=== PATIENT | female | born 1940 | race Caucasian/White ===

== ENCOUNTER 2016-09-06 10:55 | Day surgery (SDC) | payer MEDICARE ==
[2016-09-06] MEDS ORDERED: DIPHENHYDRAMINE HCL 50 MG/ML VIAL ONE (11:10)
[2016-09-06] MEDS ORDERED: NALOXONE HCL INJ/PF 0.4 MG/1 ML SDV ONE (11:11)
[2016-09-06] MEDS ORDERED: FENTANYL CITRATE INJ/PF 100 MCG/2 ML AMPUL ONE (11:11)
[2016-09-06] MEDS ORDERED: FLUMAZENIL INJ 0.5 MG/5 ML VIAL IV ONE (11:11)
[2016-09-06] MEDS ORDERED: ONDANSETRON HCL INJ/PF 4 MG/2 ML SDV ONE (11:11)
[2016-09-06] MEDS ORDERED: EPINEPHRINE INJ 1 MG/10 ML DISP.SYRIN ONE (11:12)
[2016-09-06] MEDS ORDERED: GLUCAGON,HUMAN RECOMB 1 MG INJ ONE (11:12)
[2016-09-06] MEDS: MIDAZOLAM 2 MG/2 ML INJ ONE ×2 (12:13→12:17)
--- NOTE | 2016-09-06 13:22 | Operative Report ---
Operative Report DATE OF SURGERY: 09/06/16 Operative Report: The risks benefits and alternatives of the procedure explained to the patient in detail and informed consent is obtained that GIF Olympus video scope was inserted into the patient's mouth and hypopharynx the esophagus is identified intubated and insufflated the scope was then advanced through the esophagus stomach and duodenum retroflexion maneuver is done the esophagus stomach and first and second portions of the duodenum examined PREOPERATIVE DIAGNOSIS: GERD, dyspepsia POSTOPERATIVE DIAGNOSIS: Thickened gastric folds status post biopsy rule out malignancy. Gastritis status post biopsy rule out Helicobacter pylori. Hiatal hernia OPERATION: EGD with biopsy SURGEON: SREE CLEANING ANESTHESIA: Moderate Sedation - 4 mg of Versed, 25 g of fentanyl. Conscious sedation monitoring time 30 minutes. TISSUE REMOVED OR ALTERED: Gastric mucosal specimen obtained rule out Helicobacter pylori COMPLICATIONS: None. ESTIMATED BLOOD LOSS: none. INTRAOPERATIVE FINDINGS: Described above. No ulcers noted. Duodenum normal. Esophagus is patent PROCEDURE: Patient tolerated the procedure well. No immediate postprocedure complications are noted. Patient discharged in good condition. Discharge date 09/06/2016. Discharge diet: Regular. Discharge activity: Regular. 2-3 week follow-up to discuss findings We'll await on biopsies Patient is instructed to call the office or proceed to the emergency room should there be any further problems or questions
[2016-09-06 13:41] VITALS: BP 135/90
== END 2016-09-06 13:40 | disposition home or self-care (01) ==
LOC: END 10:55
PROVIDERS: ATTEND Internal Medicine Gastroenterology
PROC: 0DB68ZX Excision of Stomach, Via Natural or Artificial Opening Endoscopic, Diagnostic (ICD-10-PCS; principal; 2016-09-06 11:30)
DX: K21.9 Gastro-esophageal reflux disease without esophagitis (principal); K31.9 Disease of stomach and duodenum, unspecified; K44.9 Diaphragmatic hernia without obstruction or gangrene; E78.2 Mixed hyperlipidemia; I10 Essential (primary) hypertension; E11.9 Type 2 diabetes mellitus without complications; H91.93 Unspecified hearing loss, bilateral; M81.0 Age-related osteoporosis without current pathological fracture; R25.1 Tremor, unspecified
CPT/HCPCS: 43239; 82962; 88342 ×2; 88305 ×2; J2250; J3010; J0171; J1200; J1610; J2310; J2405; J3490

== ENCOUNTER 2016-11-05 07:12 | Day surgery (SDC) | payer MEDICARE ==
[2016-11-05] MEDS ORDERED: PROPOFOL INJ 200 MG/20 ML VIAL IV ONE (07:15)
[2016-11-05 09:20] VITALS: BP 141/79
--- NOTE | 2016-11-05 12:33 | Operative Report ---
Operative Report DATE OF SURGERY: 11/05/16 Operative Report: The risks, benefits and alternatives of the procedure including risks of bleeding, perforation requiring surgery are explained to the patient detail and informed consent was obtained. Patient was taken back to the endoscopy suite. Timeout was called. Propofol medications administered. A rectal examination was done which did not reveal any masses, tears or fissures. An Olympus video scope was inserted into the patient's rectum. The scope was then carefully guided all the way to the cecum. The cecum was identified by the usual anatomical landmarks including the ileocecal valve as well as the appendiceal office. Photodocumentation was obtained. The prep was good. The scope was then sequentially pulled back via the rest segments of the colon including the ascending colon, hepatic flexure, transverse colon, splenic flexure, descending colon and finally to the rectosigmoid portions of the colon. Retroflexion maneuver was performed. PREOPERATIVE DIAGNOSIS: Change in bowel habits. POSTOPERATIVE DIAGNOSIS: 2 colon polyps that removed via snare polypectomy and retrieved. One in the area of the hepatic flexure and the other in the transverse colon. Internal hemorrhoids. OPERATION: Colonoscopy with snare polypectomy. SURGEON: SREE CLEANING ANESTHESIA: LMAC TISSUE REMOVED OR ALTERED: All specimens were retrieved. COMPLICATIONS: None. ESTIMATED BLOOD LOSS: None. INTRAOPERATIVE FINDINGS: No evidence of inflammation. 2 polyps as described. Internal hemorrhoids. PROCEDURE: Patient tolerated the procedure well. No immediate postprocedure complications are noted. Patient discharged in good condition. Discharge date 11/05/2016. Discharge diet: Regular. Discharge activity: Regular. 2-3 week follow-up to discuss findings. 5 year surveillance colonoscopy. Patient is instructed to call the office or proceed to the emergency room should there be any further problems or questions. We will wait on biopsies.
--- NOTE | 2016-11-07 10:04 | PDOC CONSULTATION ---
Consultation Consult Date: 11/05/16 Attending physician:: SREE CLEANING Consult reason:: change in bowel habits History of Present Illness Admission Date/PCP: MILLY DOYLE MD History of Present Illness: XANDER TORRES is a 76 year old female patient previously had EGD done now having a change in her bowel habits denies any significant blood in her stools however recently has been more constipated no abdominal pain no fever or chills Past Medical History Cardiac Medical History: Reports: Hypertension Denies: Coronary Artery Disease, Myocardial Infarction Pulmonary Medical History: Denies: Asthma, Bronchitis, Chronic Obstructive Pulmonary Disease (COPD), Pneumonia Neurological Medical History: Denies: Seizures Musculoskeltal Medical History: Reports: Arthritis Hematology: Denies: Anemia Past Surgical History Past Surgical History: Denies: Hysterectomy Social History Smoking Status: Former Smoker Frequency of Alcohol Use: Rare Family History Parental Family History Reviewed: Yes Children Family History Reviewed: Unknown Sibling(s) Family History Reviewed.: Unknown Medication/Allergy Home Medications: Amlodipine Besylate 1 tab PO DAILY 09/06/16 Calcium 2 tab PO DAILY 09/06/16 Metformin HCl 500 mg PO ASDIR PRN 09/06/16 Nexium Otc 1 tab PO DAILY 09/06/16 Ranitidine HCl 150 mg PO DAILY 09/06/16 Triamterene/Hydrochlorothiazid [Triamterene-Hctz 37.5-25 mg Tb] 0.5 tab PO DAILY 09/06/16 Vit A/Vit C/Vit E/Zinc/Copper [Preservision Areds Tablet] 1 each PO BID Vit C/E/Zn/Coppr/Lutein/Zeaxan [Preservision Areds 2 Softgel] 1 each PO DAILY Allergies/Adverse Reactions: codeine Allergy (Mild, Verified 11/05/16 07:32) Rash, stomach ache Jnyztqg-Zzt-Shi Reductase Inhibitor Allergy (Mild, Verified 11/05/16 07:32) Generalized rash dust Allergy (Mild, Uncoded 11/05/16 07:32) Stuffy Nose Review of Systems Constitutional: ABSENT: fever(s), headache(s), night sweats, weakness Eyes: ABSENT: visual disturbances Ears: ABSENT: hearing changes Nose, Mouth, and Throat: ABSENT: mouth pain Cardiovascular: ABSENT: edema, orthropnea, palpitations Respiratory: ABSENT: dyspnea, hemoptysis Gastrointestinal: PRESENT: constipation. ABSENT: coffee ground emesis Genitourinary: ABSENT: dysuria, hematuria Musculoskeletal: ABSENT: deformity Integumentary: ABSENT: lesions Neurological: ABSENT: syncope, tingling, tremor(s) Endocrine: ABSENT: heat intolerance, polydipsia, polyphagia, polyuria Hematologic/Lymphatic: ABSENT: easy bruising Physical Exam Vital Signs: Temp Pulse Resp BP Pulse Ox 97.5 F 83 16 141/79 H 100 11/05/16 08:36 11/05/16 09:06 11/05/16 09:06 11/05/16 09:06 11/05/16 09:06 Intake & Output 11/06/16 11/07/16 11/08/16 06:59 06:59 06:59 Intake Total 1350 Balance 1350 Weight 53.52 kg General appearance: PRESENT: no acute distress. ABSENT: mild distress Head exam: PRESENT: normocephalic Eye exam: PRESENT: EOMI, PERRLA Mouth exam: PRESENT: moist Throat exam: ABSENT: tonsillar exudate, tonsillogmegaly Neck exam: ABSENT: meningismus, tenderness Respiratory exam: PRESENT: clear to auscultation jojo Cardiovascular exam: PRESENT: RRR, +S1, +S2 GI/Abdominal exam: PRESENT: soft. ABSENT: rebound, rigid, tenderness Extremities exam: ABSENT: joint swelling Musculoskeletal exam: PRESENT: full ROM Neurological exam: PRESENT: oriented to time, oriented to situation, reflexes normal Skin exam: PRESENT: normal color. ABSENT: mottled, pallor, petechiae Assessment & Plan - Diagnosis (1) Change in bowel habits Plan: Risks, benefits and alternatives are discussed with the patient in detail patient is willing to proceed she would benefit from Propofol sedation further recommendations to follow - Time Time Spent: 30 to 50 Minutes
== END 2016-11-05 09:20 | disposition home or self-care (01) ==
LOC: END 07:12
PROVIDERS: ATTEND Internal Medicine Gastroenterology
PROC: 0DBK8ZX Excision of Ascending Colon, Via Natural or Artificial Opening Endoscopic, Diagnostic (ICD-10-PCS; 2016-11-05)
PROC: 0DBL8ZX Excision of Transverse Colon, Via Natural or Artificial Opening Endoscopic, Diagnostic (ICD-10-PCS; principal; 2016-11-05 08:00)
DX: D12.3 Benign neoplasm of transverse colon (principal); K64.8 Other hemorrhoids; I10 Essential (primary) hypertension; M19.90 Unspecified osteoarthritis, unspecified site; E78.2 Mixed hyperlipidemia; E11.9 Type 2 diabetes mellitus without complications; Z87.891 Personal history of nicotine dependence; Z79.899 Other long term (current) drug therapy; Z79.84 Long term (current) use of oral hypoglycemic drugs; Z88.5 Allergy status to narcotic agent; Z88.8 Allergy status to other drugs, medicaments and biological substances
CPT/HCPCS: 45385; 82962; 88305 ×2; J2704; 810

== ENCOUNTER 2017-09-18 09:34 | Day surgery (SDC) | payer MEDICARE ==
[~2017-09-18 09:34] MED LIST: KETOROLAC TROMETHAMINE 0.45% 4 DROP/0.4 ML DROPERETTE OD PRN
[2017-09-18] MEDS ORDERED: EPINEPHRINE INJ/PF 1 MG/1 ML AMPULE ONE (09:53)
[2017-09-18] MEDS ORDERED: CHONDR SU A NA/HYALUR INTRAOC KIT (SURGICARE) ONE (09:53)
[2017-09-18] MEDS ORDERED: TOBRAMYCIN SULFATE/DEXAMETH OPH OINTMENT 3.5 GM ONE (09:53)
[2017-09-18] MEDS ORDERED: LIDOCAINE 1% INJ-PF (10 MG/ML) 30 ML SDV ONE (09:53)
[2017-09-18] MEDS: CYCLOPENTOLATE 0.2%/PHENYLEPHRINE 1% OPH SOLN 2 ML OD PRN ×3 (10:04→10:42)
[2017-09-18] MEDS: TROPICAMIDE 1% OPH SOLN 3 ML OD PRN ×3 (10:04→10:42)
[2017-09-18] MEDS: BESIFLOXACIN HCL 0.6% OPH SUSP 5 ML BOTTLE OD PRN ×3 (10:05→11:12)
[2017-09-18] MEDS: TETRACAINE HCL 0.5% OPH SOLN 0.6 ML DROPERETTE OD PRN ×3 (10:06→10:54)
[2017-09-18] MEDS ORDERED: FENTANYL CITRATE INJ/PF 100 MCG/2 ML AMPUL ONE (10:42)
[2017-09-18] MEDS ORDERED: MIDAZOLAM 2 MG/2 ML INJ ONE (10:42)
== END 2017-09-18 11:57 | disposition home or self-care (01) ==
LOC: SC 09:34
PROVIDERS: ATTEND Ophthalmology
DX: H25.11 Age-related nuclear cataract, right eye (principal); I10 Essential (primary) hypertension; K21.9 Gastro-esophageal reflux disease without esophagitis; Z88.5 Allergy status to narcotic agent; Z88.8 Allergy status to other drugs, medicaments and biological substances; Z79.84 Long term (current) use of oral hypoglycemic drugs; Z79.899 Other long term (current) drug therapy
CPT/HCPCS: 66984; V2630; J2250; J3490 ×3; A9270; J0171; J3010; 142

== ENCOUNTER → 2019-12-24 | Outpatient (CLI) | payer MEDICARE ==
[2019-12-24 17:39] LABS: APPEARANCE,URINE CLEAR; BILIRUBIN,URINE NEGATIVE (NEGATIVE); COLOR,URINE STRAW; GLUCOSE, URINE NEGATIVE (NEGATIVE); KETONES,URINE NEGATIVE (NEGATIVE); LEUKOCYTE ESTERASE,URINE TRACE (NEGATIVE); NITRITE,URINE NEGATIVE (NEGATIVE); PROTEIN,URINE NEGATIVE (NEGATIVE); UROBILINOGEN,URINE NEGATIVE mg/dL (<2.0)
[2019-12-24 17:40] LABS: ABSOLUTE EOSINOPHILS # (AUTO) 0.3 10^3/uL (0.0-0.6); ABSOLUTE LYMPHOCYTES (AUTO) 0.8 10^3/uL (0.5-4.7); ABSOLUTE MONOCYTES (AUTO) 0.6 10^3/uL (0.1-1.4); ABSOLUTE NEUT (AUTO) 4.7 10^3/uL (1.7-8.2); BASOPHILS % (AUTO) 0.7 % (0-2); EOSINOPHILS % (AUTO) 5.1 % (0-6); HEMATOCRIT 35.7 % (36.0-47.0); LYMPHOCYTES % (AUTO) 12.3 % (13-45); MEAN CORPUSCULAR HEMOGLOBIN 29.3 pg (27.0-33.4); MEAN CORPUSCULAR HGB CONC 33.7 g/dL (32.0-36.0); MEAN CORPUSCULAR VOLUME 87 fl (80-97); MONOCYTES % (AUTO) 9.9 % (3-13); PLATELET COUNT 279 10^3/uL (150-450); RED BLOOD COUNT 4.11 10^6/uL (3.72-5.28); RED CELL DISTRIBUTION WIDTH 13.1 % (11.5-14.0); TOTAL CELLS COUNTED % (AUTO) 100 %; WHITE BLOOD COUNT 6.5 10^3/uL (4.0-10.5)
[2019-12-24 17:54] LABS: ALBUMIN 4.3 g/dL (3.5-5.0); ANION GAP 10 (5-19); BLOOD UREA NITROGEN 75 mg/dL (7-20); CALCIUM 9.4 mg/dL (8.4-10.2); CARBON DIOXIDE 30 mmol/L (22-30); CHLORIDE 94 mmol/L (98-107); GLUCOSE 131 mg/dL (75-110); PHOSPHORUS 5.9 mg/dL (2.5-4.5); POTASSIUM 4.7 mmol/L (3.6-5.0)
== END ==
LOC: OD 15:58
PROVIDERS: ATTEND Physician Assistant Medical
DX: N17.9 Acute kidney failure, unspecified (principal)
CPT/HCPCS: 36415; 80069; 81001; 85025

== ENCOUNTER → 2020-01-04 | Outpatient (CLI) | payer MEDICARE ==
[2020-01-04 11:12] LABS: ABSOLUTE EOSINOPHILS # (AUTO) 0.3 10^3/uL (0.0-0.6); ABSOLUTE LYMPHOCYTES (AUTO) 0.8 10^3/uL (0.5-4.7); ABSOLUTE MONOCYTES (AUTO) 0.6 10^3/uL (0.1-1.4); ABSOLUTE NEUT (AUTO) 3.7 10^3/uL (1.7-8.2); BASOPHILS % (AUTO) 0.7 % (0-2); EOSINOPHILS % (AUTO) 6.4 % (0-6); HEMATOCRIT 34.8 % (36.0-47.0); HEMOGLOBIN 11.8 g/dL (12.0-15.5); LYMPHOCYTES % (AUTO) 15.3 % (13-45); MEAN CORPUSCULAR HEMOGLOBIN 29.6 pg (27.0-33.4); MEAN CORPUSCULAR HGB CONC 33.8 g/dL (32.0-36.0); MEAN CORPUSCULAR VOLUME 88 fl (80-97); MONOCYTES % (AUTO) 10.6 % (3-13); PLATELET COUNT 236 10^3/uL (150-450); RED BLOOD COUNT 3.98 10^6/uL (3.72-5.28); RED CELL DISTRIBUTION WIDTH 13.1 % (11.5-14.0); TOTAL CELLS COUNTED % (AUTO) 100 %; WHITE BLOOD COUNT 5.5 10^3/uL (4.0-10.5)
[2020-01-04 11:35] LABS: ALBUMIN 4.3 g/dL (3.5-5.0); ANION GAP 12 (5-19); BLOOD UREA NITROGEN 65 mg/dL (7-20); CALCIUM 9.4 mg/dL (8.4-10.2); CARBON DIOXIDE 25 mmol/L (22-30); CHLORIDE 98 mmol/L (98-107); GLUCOSE 166 mg/dL (75-110); PHOSPHORUS 4.8 mg/dL (2.5-4.5); POTASSIUM 5.1 mmol/L (3.6-5.0)
[2020-01-04 14:35] LABS: APPEARANCE,URINE CLEAR; BILIRUBIN,URINE NEGATIVE (NEGATIVE); COLOR,URINE STRAW; GLUCOSE, URINE NEGATIVE (NEGATIVE); KETONES,URINE NEGATIVE (NEGATIVE); LEUKOCYTE ESTERASE,URINE SMALL (NEGATIVE); NITRITE,URINE NEGATIVE (NEGATIVE); PROTEIN,URINE NEGATIVE (NEGATIVE); URINE SPECIFIC GRAVITY 1.009; UROBILINOGEN,URINE NEGATIVE mg/dL (<2.0)
== END ==
LOC: OD 10:06
PROVIDERS: ATTEND Physician Assistant Medical
DX: N17.9 Acute kidney failure, unspecified (principal)
CPT/HCPCS: 36415; 80069; 81001; 85025

== ENCOUNTER 2020-03-03 03:16 | Inpatient (IN) | payer MEDICARE ==
--- NOTE | 2020-03-03 03:31 | ER Document Report ---
ED Respiratory Problem - General Chief Complaint: Breathing Difficulty Stated Complaint: DIFFICULTY BREATHING Time Seen by Provider: 03/03/20 03:25 Primary Care Provider: KELLY SHEFFIELD PA-C [ALLIED HEALTH PROFESSIONAL] - Follow up as needed Mode of Arrival: Medic Information source: Patient, Relative, Emergency Med Personnel Cannot obtain history due to: Other - very [place] Notes: 79-year-old female arrived by EMS with chief complaint of having acute chest pressure and shortness of breath. This occurred while she was laying down trying to get to sleep tonight. Patient has history of CHF and is followed by Dr. Benoit. Patient within the last 2 months had her Imdur and metoprolol increased but then 2 weeks ago this was decreased back because of no changes in the patient's blood pressure. Patient has been sleeping poorly for the last 2 or 3 days only getting around 2 hours sleep. She denies any headache but fell 2 weeks ago in the bathroom slipping on some carpet. She has bruises to her left cheek and left submental area. Patient denies any tenderness in these areas and denies any LOC. Most of this history is taken from Triny her daughter and her Jose who has some mild dementia. 's phone numbers [phone] and daughter Triny's number is [phone]. The patient was placed in room 8 around a edwards section and I advised the family to try to get some sleep because seeing her in this area would be very difficult because of the suit up PPE for coronavirus. It is currently pandemic in this country and the world. We do not suspect any coronavirus in this woman at this time. Patient has mild nonpitting edema of her legs. TRAVEL OUTSIDE OF THE [place] IN LAST 30 DAYS: No - HPI Patient complains to provider of: Chest pain, COPD, Short of breath Onset: Just prior to arrival Initiating Event: Other - unknown Quality of pain: Achy Severity: Mild Pain Level: 1 Short of Breath: Moderate Chest pain/discomfort: Heaviness Cough: Nonproductive - Related Data Allergies/Adverse Reactions: codeine Allergy (Mild, Verified 11/05/16 07:32) Rash, stomach ache Eybvckg-Nsv-Qtd Reductase Inhibitor Allergy (Mild, Verified 11/05/16 07:32) Generalized rash wool Allergy (Verified 08/29/17 14:45) rash dust Allergy (Mild, Uncoded 11/05/16 07:32) Stuffy Nose Past Medical History - General Information source: Patient - Social History Smoking Status: Unknown if Ever Smoked Cigarette use (# per day): No Chew tobacco use (# tins/day): No Smoking Education Provided: No Frequency of alcohol use: None Drug Abuse: None Lives with: Family Family History: Reviewed & Not Pertinent Patient has suicidal ideation: No Patient has homicidal ideation: No - Past Medical History Cardiac Medical History: Reports: Hx Hypertension - MEDICATED Denies: Hx Coronary Artery Disease, Hx Heart Attack Pulmonary Medical History: Denies: Hx Asthma, Hx Bronchitis, Hx COPD, Hx Pneumonia Neurological Medical History: Denies: Hx Cerebrovascular Accident, Hx Seizures GI Medical History: Denies: Hx Hepatitis, Hx Hiatal Hernia, Hx Ulcer Musculoskeletal Medical History: Reports Hx Arthritis Infectious Medical History: Denies: Hx Hepatitis Past Surgical History: Denies: Hx Hysterectomy, Hx Mastectomy, Hx Open Heart Surgery, Hx Pacemaker - Immunizations Hx Diphtheria, Pertussis, Tetanus Vaccination: Yes Review of Systems - Review of Systems Constitutional: See HPI, Weakness EENT: No symptoms reported Cardiovascular: See HPI, Chest pain Respiratory: See HPI, Short of breath Gastrointestinal: No symptoms reported Genitourinary: No symptoms reported Female Genitourinary: No symptoms reported Musculoskeletal: No symptoms reported Skin: No symptoms reported Hematologic/Lymphatic: No symptoms reported Neurological/Psychological: No symptoms reported Physical Exam - Vital signs Vitals: Temp 98.1 F 03/03/20 03:16 Interpretation: Normal - General General appearance: Appears well, Alert - HEENT Head: Normocephalic, Abrasions, Ecchymosis, Other - To left cheek and left submental area status post fall in bathroom. Eyes: Normal Pupils: PERRL - Respiratory Respiratory status: No respiratory distress Chest status: Nontender Breath sounds: Normal Chest palpation: Normal - Cardiovascular Rhythm: Regular Heart sounds: Normal auscultation Murmur: No - Abdominal Inspection: Normal Distension: No distension Bowel sounds: Normal Tenderness: Nontender Organomegaly: No organomegaly - Rectal Hemorrhoids: Other - deferred - Genitourinary Bimanuel exam: Other - deferred - Back Back: Normal, Nontender - Extremities General upper extremity: Normal inspection, Nontender, Normal color, Normal ROM, Normal temperature General lower extremity: Normal inspection, Nontender, Edema - non pitting, Normal color, Normal ROM, Normal temperature, Normal weight bearing. No: Julio's sign - Neurological Neuro grossly intact: Yes Cognition: Normal Orientation: AAOx4 Delmy Coma Scale Eye Opening: Spontaneous [place] Coma Scale Verbal: Oriented [place] Coma Scale Motor: Obeys Commands Delmy Coma Scale Total: 15 Speech: Normal Motor strength normal: LUE, RUE, LLE, RLE Sensory: Normal - Psychological Associated symptoms: Normal affect, Normal mood - Skin Skin Temperature: Warm Skin Moisture: Dry Skin Color: Normal Course - Vital Signs Vital signs: Temp Pulse Resp BP Pulse Ox 98.1 F 23 H 149/90 H 99 03/03/20 03:16 03/03/20 04:55 03/03/20 04:46 03/03/20 04:55 - Laboratory Result Diagrams: 03/03/20 03:21 03/03/20 03:21 Laboratory results interpreted by me: 03/03/20 03/03/20 03/03/20 03:21 03:21 03:21 WBC 11.0 H Lymph % (Auto) 10.6 L Absolute Neuts (auto) 8.9 H Seg Neutrophils % 81.0 H Potassium 5.1 H Carbon Dioxide 20 L BUN 45 H Creatinine 2.38 H Est GFR ( Amer) 24 L Est GFR (MDRD) Non-Af 20 L Glucose 190 H Lactic Acid 2.2 H Calcium 10.4 H AST 43 H Alkaline Phosphatase 136 H NT-Pro-B Natriuret Pep 03/03/20 03:21 WBC Lymph % (Auto) Absolute Neuts (auto) Seg Neutrophils % Potassium Carbon Dioxide BUN Creatinine Est GFR ( Amer) Est GFR (MDRD) Non-Af Glucose Lactic Acid Calcium AST Alkaline Phosphatase NT-Pro-B Natriuret Pep 29056 H - Diagnostic Test Radiology reviewed: Reports reviewed - EKG Interpretation by Me EKG shows normal: Sinus rhythm Rate: Normal Rhythm: NSR - With sinus rhythm probable left atrial abnormality borderline left axis deviation and borderline R wave progression anterior leads and nonspecific T wave abnormalities bilateral leads as read by computer and diagnosed by myself. Critical Care Note - Critical Care Note Comments: Dr. Radha Ramirez called at [phone] and she advises she will accept the patient and see the patient and wants a cardiology consult. Dr. Bravo was called shortly thereafter. Discharge - Discharge Clinical Impression: Hypertensive cardiovascular disease Qualifiers: Heart failure presence: unspecified whether heart failure present Qualified Code(s): I11.9 - Hypertensive heart disease without heart failure CHF (congestive heart failure) Qualifiers: Heart failure type: unspecified Heart failure chronicity: acute Qualified Code(s): I50.9 - Heart failure, unspecified Right lower lobe pneumonitis Qualifiers: Pneumonia type: due to unspecified organism Qualified Code(s): J18.9 - Pneumonia, unspecified organism Condition: Stable Disposition: ADMITTED INPATIENT Admitting Provider: Ashley (Hospitalist) Unit Admitted: Telemetry Referrals: KELLY SHEFFIELD PA-C [ALLIED HEALTH PROFESSIONAL] - Follow up as needed
[2020-03-03 03:43] LABS: ABSOLUTE BASOPHILS # (AUTO) 0.1 10^3/uL (0.0-0.2); ABSOLUTE EOSINOPHILS # (AUTO) 0.3 10^3/uL (0.0-0.6); ABSOLUTE LYMPHOCYTES (AUTO) 1.2 10^3/uL (0.5-4.7); ABSOLUTE MONOCYTES (AUTO) 0.5 10^3/uL (0.1-1.4); ABSOLUTE NEUT (AUTO) 8.9 10^3/uL (1.7-8.2); BASOPHILS % (AUTO) 0.5 % (0-2); HEMATOCRIT 38.4 % (36.0-47.0); LYMPHOCYTES % (AUTO) 10.6 % (13-45); MEAN CORPUSCULAR HEMOGLOBIN 29.9 pg (27.0-33.4); MEAN CORPUSCULAR HGB CONC 33.9 g/dL (32.0-36.0); MEAN CORPUSCULAR VOLUME 88 fl (80-97); MONOCYTES % (AUTO) 4.9 % (3-13); PLATELET COUNT 264 10^3/uL (150-450); RED BLOOD COUNT 4.35 10^6/uL (3.72-5.28); TOTAL CELLS COUNTED % (AUTO) 100 %
[2020-03-03 03:54] LABS: ALBUMIN 4.3 g/dL (3.5-5.0); ALKALINE PHOSPHATASE 136 U/L (38-126); ANION GAP 14 (5-19); ASPARTATE AMINO TRANSFERASE 43 U/L (14-36); BILIRUBIN,DIRECT 0.2 mg/dL (0.0-0.4); BILIRUBIN,TOTAL 0.5 mg/dL (0.2-1.3); BLOOD UREA NITROGEN 45 mg/dL (7-20); CALCIUM 10.4 mg/dL (8.4-10.2); CARBON DIOXIDE 20 mmol/L (22-30); CHLORIDE 105 mmol/L (98-107); CREATINE KINASE 103 U/L (30-135); GLUCOSE 190 mg/dL (75-110); POTASSIUM 5.1 mmol/L (3.6-5.0); TOTAL PROTEIN 7.2 g/dL (6.3-8.2)
[2020-03-03 04:07] LABS: INTERNATIONAL RATION (INR) 1.06; PARTIAL THROMBOPLASTIN TIME 28.6 SEC (23.5-35.8)
[2020-03-03 04:11] LABS: TROPONIN I 0.074 ng/mL
[2020-03-03] MEDS ORDERED: DEXAMETHASONE SOD PHOS INJ 10 MG/1 ML VIAL IV ONE (04:28)
[2020-03-03] MEDS ORDERED: AZITHROMYCIN INJ 500 MG VIAL IV ONE (04:28)
[2020-03-03] MEDS ORDERED: BUMETANIDE INJ/PF 1 MG/4 ML SDV IV ONE (04:29)
--- NOTE | 2020-03-03 05:00 | RADIOLOGY REPORT (SQ) ---
EXAM: XR Chest, 1 View EXAM DATE/TIME: 03/03/2020 04:29 CLINICAL HISTORY: The patient is 79 years old and is Female; dyspnea TECHNIQUE: Frontal view of the chest. COMPARISON: Chest radiograph from 11/25/2019 FINDINGS: LUNGS: Interval development of mild diffuse interstitial prominence, suspicious for interstitial edema. More focal increased density in the right lower lung may represent atelectasis. PLEURAL SPACE: Small right pleural effusion. No obvious pneumothorax. HEART: No significant enlargement of the cardiac silhouette. MEDIASTINUM: Unremarkable. BONES/JOINTS: No acute osseous findings. IMPRESSION: 1. Small right pleural effusion. 2. Interval development of mild diffuse interstitial prominence, suspicious for interstitial edema. More focal increased density in the right lower lung may represent atelectasis. Pneumonia not excluded.
[2020-03-03] MEDS ORDERED: ONDANSETRON 4 MG TAB.RAPDIS PO PRN (05:56)
[2020-03-03] MEDS ORDERED: HEPARIN SOD (PORCINE) 5,000 UNIT/ML 1 ML VIAL SUBCUT SCH (06:00)
[2020-03-03] MEDS ORDERED: DEXTROSE 50%-WATER 25 GM/50 ML DISP.SYRIN IV PRN ×2 (06:04)
[2020-03-03] MEDS ORDERED: DEXTROSE 40% GEL 15 GM TUBE PO PRN ×2 (06:04)
[2020-03-03] MEDS ORDERED: GLUCAGON,HUMAN RECOMB 1 MG INJ IM PRN (06:04)
[2020-03-03 06:34] LABS: VENOUS BLOOD BASE EXCESS -5.5 mmol/L; VENOUS BLOOD HCO3 20.6 mmol/L (20-32); VENOUS BLOOD PCO2 42.2 mmHg (35-63); VENOUS BLOOD PH 7.31 (7.30-7.42)
--- NOTE | 2020-03-03 06:47 | PDOC H&P ---
History of Present Illness Admission Date/PCP: 03/03/20 05:25 MIRIAN BARROSO MD History of Present Illness: XANDER TORRES is a 79 year old female, PMH of CAD, T2DM, HTN, HLD, CKD, wh o was brought to the ED via EMS due to shortness of breath and chest heaviness. History obtained from her daughter Triny and from ED physician chart. Cording to the daughter she has been having on and off chest heaviness for the past month. She was being seen by Dr. Benoit who has been adjusting her medications for high blood pressure. According to the daughter Dr. Benoit was contemplating on doing a cardiac cath on her but held off due to her kidney functions. According to the patient her shortness of breath and chest heaviness seems to be worse at night. She denies any orthopnea, leg swelling, palpitations, fever, cough. Per EMS her blood pressure was 200/100 hence she was started on a nitroglycerin drip. She was also put on BiPAP per EMS which was continued in the ED. In the emergency room blood pressure was 181/127, rate of 86, O2 saturation 96%. CBC showed a count of 11. CMP showed potassium of 5.1, creatinine 2.38 which is around her baseline. Lactic acid 2.2. Troponin 0.074, BNP 13,600. She was given 1 mg of Bumex. Chest x-ray showed small right pleural effusion, interval development of mild diffuse interstitial prominence suspicious for interstitial edema. More fo taurus increased density in the right lower lobe may represent atelectasis. Pneumonia is not excluded. She was given dexamethasone 10 mg IV, azithromycin for possible COVID-19. Dr. Welsh was consulted for cardiology. Past Medical History Cardiac Medical History: Reports: Hyperlipidema, Hypertension - MEDICATED Denies: Coronary Artery Disease, Myocardial Infarction Pulmonary Medical History: Denies: Asthma, Bronchitis, Chronic Obstructive Pulmonary Disease (COPD), Pneumonia Neurological Medical History: Reports: Other - History of Parkinson's disease Denies: Seizures Endocrine Medical History: Reports: Diabetes Mellitus Type 2 Renal/ Medical History: Reports: Chronic Kidney Disease GI Medical History: Reports: Gastroesophageal Reflux Disease Denies: Hepatitis, Hiatal Hernia Musculoskeltal Medical History: Reports: Arthritis Hematology: Denies: Anemia, Sickle Cell Disease Past Surgical History Past Surgical History: Denies: Amputation, Hysterectomy, Mastectomy, Pacemaker Social History Lives with: Family Smoking Status: Unknown if Ever Smoked Electronic Cigarette use?: No Frequency of Alcohol Use: Rare Family History Family History: Reviewed & Not Pertinent Parental Family History Reviewed: No Children Family History Reviewed: No Sibling(s) Family History Reviewed.: No Medication/Allergy Home Medications: Calcium 2 tab PO DAILY 09/06/16 Ranitidine HCl 150 mg PO DAILY 09/06/16 Krill/Om3/Dha/Epa/Om6/Lip/Astx [Krill Oil 1,000 Mg Softgel] 1 each PO DAILY 08/29/17 Omeprazole 20 mg PO DAILY 08/29/17 Spironolactone [Aldactone 25 mg Tablet] 25 mg PO DAILY 08/29/17 Vit A/Vit C/Vit E/Zinc/Copper [Preservision Areds Softgel] 1 each PO DAILY 08/29/17 Allergies/Adverse Reactions: codeine Allergy (Mild, Verified 11/05/16 07:32) Rash, stomach ache Plrlhrv-Epj-Imm Reductase Inhibitor Allergy (Mild, Verified 11/05/16 07:32) Generalized rash wool Allergy (Verified 08/29/17 14:45) rash dust Allergy (Mild, Uncoded 11/05/16 07:32) Stuffy Nose Review of Systems Constitutional: PRESENT: fatigue Eyes: ABSENT: visual disturbances Ears: ABSENT: hearing changes Nose, Mouth, and Throat: ABSENT: headache(s), mouth pain, sore throat Cardiovascular: PRESENT: chest pain, dyspnea on exertion, edema, other - Paroxysmal nocturnal dyspnea. ABSENT: orthropnea, palpitations Gastrointestinal: ABSENT: abdominal pain, diarrhea, hematemesis Genitourinary: ABSENT: difficulty urinating, dysuria Musculoskeletal: ABSENT: joint swelling Neurological: PRESENT: abnormal movements Hematologic/Lymphatic: ABSENT: easy bruising Physical Exam Vital Signs: Temp Pulse Resp BP Pulse Ox 98.1 F 16 157/105 H 98 03/03/20 03:16 03/03/20 05:45 03/03/20 05:45 03/03/20 05:45 Intake & Output 03/01/20 03/02/20 03/03/20 06:59 06:59 06:59 Weight 63.503 kg General appearance: PRESENT: no acute distress, cooperative, hard of hearing Head exam: PRESENT: atraumatic, normocephalic Eye exam: PRESENT: EOMI, PERRLA Mouth exam: PRESENT: moist Neck exam: PRESENT: full ROM, JVD Respiratory exam: PRESENT: rales, symmetrical, unlabored. ABSENT: tachypnea, wheezes Cardiovascular exam: PRESENT: RRR, +S1, +S2 Pulses: PRESENT: +2 pedal pulses bilateral GI/Abdominal exam: PRESENT: normal bowel sounds Extremities exam: PRESENT: +1 edema Musculoskeletal exam: PRESENT: full ROM Neurological exam: PRESENT: alert, awake, oriented to person, oriented to place, oriented to time Skin exam: PRESENT: normal color Results Laboratory Results: 03/03/20 03:21 03/03/20 03:21 03/03/20 03/03/20 03/03/20 03:21 03:21 03:21 WBC 11.0 H RBC 4.35 Hgb 13.0 Hct 38.4 MCV 88 MCH 29.9 MCHC 33.9 RDW 14.0 Plt Count 264 Seg Neutrophils % 81.0 H Sodium 139.2 Potassium 5.1 H Chloride 105 Carbon Dioxide 20 L Anion Gap 14 BUN 45 H Creatinine 2.38 H Est GFR ( Amer) 24 L Glucose 190 H Lactic Acid 2.2 H Calcium 10.4 H Total Bilirubin 0.5 AST 43 H Alkaline Phosphatase 136 H Total Protein 7.2 Albumin 4.3 03/03/20 03/03/20 03:21 03:21 Creatine Kinase 103 Troponin I 0.074 NT-Pro-B Natriuret Pep 15461 H Impressions: Chest X-Ray 03/03/20 03:26 IMPRESSION: 1. Small right pleural effusion. 2. Interval development of mild diffuse interstitial prominence, suspicious for interstitial edema. More focal increased density in the right lower lung may represent atelectasis. Pneumonia not excluded. Assessment and Plan - Diagnosis (1) Hypertensive emergency Is this a current diagnosis for this admission?: Yes Plan: - came in with BP 180/127, , chest heaviness. Likely CHF exacerbation - CXR pulm congestion - +ve crackles on exam, +ve JVD - Trop 0.074 - BNP 21836 - EKG sinus rhythm - s/p nitro drip, 1 dose bumex briefly on bipap - started lasix 40 mg IV daily - home meds resumed metorprolol, ISDN, ARB - echo pending - Dr. Welsh informed (2) CHF (congestive heart failure) Qualifiers: Heart failure type: unspecified Heart failure chronicity: acute Qualified Code(s): I50.9 - Heart failure, unspecified Is this a current diagnosis for this admission?: Yes Plan: - had paroxysmal nocturnal dyspnea, chest heaviness, - +ve JVD - BNP 42052 - echo pending - started on lasix 40 IV daily, aspirin - continue ARB, Beta susy - not on statin due to allergy - cardio following (3) Non-ST elevation (NSTEMI) myocardial infarction Is this a current diagnosis for this admission?: Yes Plan: - +ve chest heaviness x 1 month, PND - hx of CAD - trop 0.074 repeat pending - EKG sinus rhythm, no ST elevation - started on aspirin, continue ARB, beta susy, ISDN - not on statin - discussed with Dr. welsh regarding anticoagulation, suggest to hold off on heparin drip as troponin leak likely from hypertensive emergency (4) Type 2 diabetes mellitus Qualifiers: Diabetes mellitus snf insulin use: without snf use Chronic kidney disease stage: stage 3 (moderate) Is this a current diagnosis for this admission?: Yes Plan: - on PO glimepiride held - SSI - accucheck - hypoglycemia protocol (5) Parkinson disease Is this a current diagnosis for this admission?: Yes Plan: - resumed carbidopa/levodopa (6) CKD (chronic kidney disease) stage 4, GFR 15-29 ml/min Is this a current diagnosis for this admission?: Yes Plan: - Crea 2.38 which is around his baseline - continue to monitor (7) Hypercalcemia Is this a current diagnosis for this admission?: Yes (8) Lactic acid acidosis Is this a current diagnosis for this admission?: Yes - Time Time Spent with patient: 35 or more minutes Anticipated Discharge Disposition: Home, Self Care Anticipated Discharge Timeframe: to be determined
[2020-03-03] MEDS: CARBIDOPA/LEVODOPA 25-100 MG TABLET PO SCH ×3 (07:45→23:23)
--- NOTE | 2020-03-03 08:52 | EKG REPORT ---
SEVERITY:- ABNORMAL ECG - SINUS RHYTHM PROBABLE LEFT ATRIAL ABNORMALITY BORDERLINE LEFT AXIS DEVIATION BORDERLINE R WAVE PROGRESSION, ANTERIOR LEADS NONSPECIFIC T ABNORMALITIES, LATERAL LEADS : Confirmed by: Tammy Cunha MD 03-Mar-2020 08:51:19
[2020-03-03] MEDS ORDERED: ALBUTEROL SULFATE 0.083% NEB 2.5 MG/3 ML AMPUL NEB PRN (09:00)
[2020-03-03] MEDS: ASPIRIN 81 MG TABLET, CHEWABLE PO SCH (09:39)
[2020-03-03] MEDS: LOSARTAN POTASSIUM 50 MG TABLET PO SCH (09:39)
[2020-03-03] MEDS: INSULIN LISPRO 100 UNIT/ML 3 ML VIAL SUBCUT SCH ×4 (09:40→23:19)
[2020-03-03] MEDS: FUROSEMIDE INJ/PF 20 MG/2 ML SDV IV SCH ×2 (09:41→23:20)
[2020-03-03] MEDS ORDERED: METOPROLOL SUCCINATE 50 MG TAB.SR.24H PO SCH (10:00)
[2020-03-03] MEDS ORDERED: CARVEDILOL 12.5 MG TABLET PO SCH (10:00)
[2020-03-03] MEDS ORDERED: ISOSORBIDE DINITRATE 20 MG TABLET PO SCH (10:00)
[2020-03-03 11:08] LABS: ANION GAP 16 (5-19); BLOOD UREA NITROGEN 48 mg/dL (7-20); CALCIUM 10.1 mg/dL (8.4-10.2); CARBON DIOXIDE 15 mmol/L (22-30); CHLORIDE 104 mmol/L (98-107); CREATINE KINASE 144 U/L (30-135); GLUCOSE 277 mg/dL (75-110); POTASSIUM 5.6 mmol/L (3.6-5.0)
[2020-03-03 11:20] LABS: TROPONIN I 0.801 ng/mL
--- NOTE | 2020-03-03 12:34 | PDOC CONSULTATION ---
Consultation Consult Date: 03/03/20 Attending physician:: KALANI GTZ Provider Consulted: YU SYLVESTER Consult reason:: CP, hypertensive emergency. History of Present Illness Admission Date/PCP: 03/03/20 05:25 MIRIAN BARROSO MD History of Present Illness: XANDER TORRES is a 79 year old female with history of CAD, type 2 diabetes, hypertension, hyperlipidemia, CKD who is consulted to our service for evaluation of heart failure. The patient was brought to the ED via ambulance due to shortness of breath and chest heaviness. She is followed by Dr. Jacek Calderon with [facility] in [place] who was planning on left heart catheterization due to intermittent chest discomfort that started approximately 1 month ago however the procedure never took place due to her chronic kidney disease and abnormal creatinine. When the ambulance went to her house her initial blood pressure was 200/100 therefore she was started on a nitroglycerin drip and BiPAP due to respiratory distress. This morning she is found laying on her bed with some dyspnea. She only complains of feeling tired and sleepy. Her telemetry shows normal sinus rhythm with episodes of sinus tachycardia. Physical exam on 03/03/2020: GENERAL: Looks slightly older than stated age. Mildly dyspneic. Oriented x3 with normal mood. Not in acute distress. Well groomed and well developed. HEENT: Normocephalic, healing bruises on the left side of the head and left ch tuscarora secondary to a prior fall approximately 1 week ago. Pupils equal. Sclerae anicteric. Oropharynx moist. NECK: No JVD. No carotid bruits. LUNGS: Bilateral rails at the bases. Normal respiratory effort without the use of accessory muscles or intercostal retractions. CARDIOVASCULAR: Regular rate and rhythm, normal S1 and S2 without murmurs, rubs, or gallops. PMI not displaced. ABDOMEN: No masses or tenderness to palpation. No bruit. No splenomegaly or hepatomegaly. No abdominal aorta bruit noted. EXTREMITIES: No edema, no cyanosis, no clubbing. +2 pulses femoral and pedal pulses bilaterally. SKIN: No lesions or rashes. MUSCULOSKELETAL: No chest tenderness to palpation. Cardiac studies: Echocardiogram on 03/03/2020 at [facility]: -Large left pleural effusion. -Poor study. -EF between 30 and 35%. -Mild global hypokinesis. -Grade 2 diastolic dysfunction. -Mild MR, mild to moderate AI. -Right ventricular hypertrophy. Past Medical History Cardiac Medical History: Reports: Hyperlipidema, Hypertension - MEDICATED Denies: Coronary Artery Disease, Myocardial Infarction Pulmonary Medical History: Denies: Asthma, Bronchitis, Chronic Obstructive Pulmonary Disease (COPD), Pneumonia Neurological Medical History: Reports: Other - History of Parkinson's disease Denies: Seizures Endocrine Medical History: Reports: Diabetes Mellitus Type 2 Renal/ Medical History: Reports: Chronic Kidney Disease GI Medical History: Reports: Gastroesophageal Reflux Disease Denies: Hepatitis, Hiatal Hernia Musculoskeltal Medical History: Reports: Arthritis Psychiatric Medical History: Denies: Depression Hematology: Denies: Anemia, Sickle Cell Disease Past Surgical History Past Surgical History: Denies: Amputation, Hysterectomy, Mastectomy, Pacemaker Social History Lives with: Family Smoking Status: Unknown if Ever Smoked Electronic Cigarette use?: No Frequency of Alcohol Use: Rare Hx Recreational Drug Use: No Hx Prescription Drug Abuse: No Family History Family History: Reviewed & Not Pertinent Parental Family History Reviewed: Yes Children Family History Reviewed: Yes Sibling(s) Family History Reviewed.: Yes Medication/Allergy Home Medications: Aspirin [Ecotrin 81 mg EC Tablet] 81 mg PO DAILY 03/03/20 Carbidopa/Levodopa [Sinemet 25-100 mg Tablet] 1 each PO TID 03/03/20 Famotidine [Pepcid] 20 mg PO BID 03/03/20 Furosemide [Lasix 40 mg Tablet] 40 mg PO QAM 03/03/20 Glimepiride 1 mg PO DAILY 03/03/20 Isosorbide Mononitrate [Imdur 30 mg Tablet.er] 30 mg PO BID 03/03/20 Metoprolol Succinate [Toprol Xl 25 mg Tab.sr] 25 mg PO DAILY 03/03/20 Telmisartan 40 mg PO DAILY 03/03/20 Allergies/Adverse Reactions: codeine Allergy (Mild, Verified 11/05/16 07:32) Rash, stomach ache [id number] Reductase Inhibitor Allergy (Mild, Verified 11/05/16 07:32) Generalized rash wool Allergy (Verified 08/29/17 14:45) rash dust Allergy (Mild, Uncoded 11/05/16 07:32) Stuffy Nose Physical Exam Vital Signs: Temp Pulse Resp BP Pulse Ox 97.5 F 103 H 16 162/95 H 96 03/03/20 06:57 03/03/20 06:57 03/03/20 06:57 03/03/20 06:57 03/03/20 06:57 Intake & Output 03/02/20 03/03/20 03/04/20 06:59 06:59 06:59 Weight 63.503 kg Results Laboratory Results: 03/03/20 03:21 03/03/20 03:21 03/03/20 03/03/20 03/03/20 03:21 03:21 03:21 WBC 11.0 H RBC 4.35 Hgb 13.0 Hct 38.4 MCV 88 MCH 29.9 MCHC 33.9 RDW 14.0 Plt Count 264 Seg Neutrophils % 81.0 H Carbonic Acid HCO3/H2CO3 Ratio ABG pH ABG pCO2 ABG pO2 ABG HCO3 ABG O2 Saturation ABG Base Excess VBG pH VBG pCO2 VBG HCO3 VBG Base Excess FiO2 Sodium 139.2 Potassium 5.1 H Chloride 105 Carbon Dioxide 20 L Anion Gap 14 BUN 45 H Creatinine 2.38 H Est GFR ( Amer) 24 L Glucose 190 H Lactic Acid 2.2 H Calcium 10.4 H Total Bilirubin 0.5 AST 43 H Alkaline Phosphatase 136 H Total Protein 7.2 Albumin 4.3 03/03/20 03/03/20 03:41 04:35 WBC RBC Hgb Hct MCV MCH MCHC RDW Plt Count Seg Neutrophils % Carbonic Acid Cancelled HCO3/H2CO3 Ratio Cancelled ABG pH Cancelled ABG pCO2 Cancelled ABG pO2 Cancelled ABG HCO3 Cancelled ABG O2 Saturation Cancelled ABG Base Excess Cancelled VBG pH 7.31 VBG pCO2 42.2 VBG HCO3 20.6 VBG Base Excess -5.5 FiO2 Cancelled Sodium Potassium Chloride Carbon Dioxide Anion Gap BUN Creatinine Est GFR ( Amer) Glucose Lactic Acid Calcium Total Bilirubin AST Alkaline Phosphatase Total Protein Albumin 03/03/20 03/03/20 03:21 03:21 Creatine Kinase 103 Troponin I 0.074 NT-Pro-B Natriuret Pep 26264 H Impressions: Chest X-Ray 03/03/20 03:26 IMPRESSION: 1. Small right pleural effusion. 2. Interval development of mild diffuse interstitial prominence, suspicious for interstitial edema. More focal increased density in the right lower lung may represent atelectasis. Pneumonia not excluded. 03/03/20 03:21 03/03/20 10:12 MCV 88 fl (80-97) 03/03/20 03:21 MCH 29.9 pg (27.0-33.4) 03/03/20 03:21 MCHC 33.9 g/dL (32.0-36.0) 03/03/20 03:21 RDW 14.0 % (11.5-14.0) 03/03/20 03:21 Seg Neutrophils % 81.0 % (42-78) H 03/03/20 03:21 Carbonic Acid Cancelled 03/03/20 04:35 HCO3/H2CO3 Ratio Cancelled 03/03/20 04:35 ABG pH Cancelled 03/03/20 04:35 ABG pCO2 Cancelled 03/03/20 04:35 ABG pO2 Cancelled 03/03/20 04:35 ABG HCO3 Cancelled 03/03/20 04:35 ABG O2 Saturation Cancelled 03/03/20 04:35 ABG Base Excess Cancelled 03/03/20 04:35 VBG pH 7.31 (7.30-7.42) 03/03/20 03:41 VBG pCO2 42.2 mmHg (35-63) 03/03/20 03:41 VBG HCO3 20.6 mmol/L (20-32) 03/03/20 03:41 VBG Base Excess -5.5 mmol/L 03/03/20 03:41 FiO2 Cancelled 03/03/20 04:35 Chloride 104 mmol/L (98-107) 03/03/20 10:12 Carbon Dioxide 15 mmol/L (22-30) L 03/03/20 10:12 Anion Gap 16 (5-19) 03/03/20 10:12 Est GFR ( Amer) 25 (>60) L 03/03/20 10:12 Glucose 277 mg/dL (75-110) H 03/03/20 10:12 Lactic Acid 2.7 mmol/L (0.7-2.1) H 03/03/20 10:12 Calcium 10.1 mg/dL (8.4-10.2) 03/03/20 10:12 Total Bilirubin 0.5 mg/dL (0.2-1.3) 03/03/20 03:21 AST 43 U/L (14-36) H 03/03/20 03:21 Alkaline Phosphatase 136 U/L (38-126) H 03/03/20 03:21 Total Protein 7.2 g/dL (6.3-8.2) 03/03/20 03:21 Albumin 4.3 g/dL (3.5-5.0) 03/03/20 03:21 03/03/20 03/03/20 03/03/20 03:21 03:21 10:12 Creatine Kinase 103 144 H CK-MB (CK-2) Troponin I 0.074 NT-Pro-B Natriuret Pep 79250 H 03/03/20 10:12 Creatine Kinase CK-MB (CK-2) 10.00 H Troponin I 0.801 NT-Pro-B Natriuret Pep Current Medication List Generic Name Dose Route Start Last Admin Trade Name Freq PRN Reason Stop Dose Admin Acetaminophen 650 mg 03/03/20 05:56 Tylenol 325 Mg Tablet PO 04/02/20 05:55 Q4HP PRN FEVER >101 Albuterol 2.5 mg 03/03/20 14:00 Ventolin 0.083% Neb 2.5 Mg/3 Ml Ampul NEB 04/02/20 13:59 RTQ6 SELVIN Albuterol 2.5 mg 03/03/20 09:00 Ventolin 0.083% Neb 2.5 Mg/3 Ml Ampul NEB 04/02/20 08:59 RTQ2HP PRN SHORTNESS OF BREATH Aspirin 81 mg 03/03/20 10:00 03/03/20 09:39 Aspirin 81 Mg Chewable Tablet PO 04/02/20 09:59 81 mg DAILY SELVIN Administration Carbidopa/Levodopa 1 tab 03/03/20 06:00 03/03/20 07:45 Sinemet 25-100 Mg Tablet PO 04/02/20 05:59 1 tab Q8 SELVIN Administration Carvedilol 6.25 mg 03/03/20 22:00 Coreg 6.25 Mg Tablet PO 04/02/20 21:59 Q12 SELVIN Dextrose 12.5 gm 03/03/20 06:04 Dextrose Inj 50% Syringe (25 Gm/50 Ml) IV 04/02/20 06:03 PRN PRN FOR BG 50-69 IN ALERT PATIENT Protocol Dextrose 25 gm 03/03/20 06:04 Dextrose Inj 50% Syringe (25 Gm/50 Ml) IV 04/02/20 06:03 PRN PRN PER PROTOCOL Protocol Furosemide 20 mg 03/03/20 10:00 03/03/20 09:41 Lasix Inj/Pf 20 Mg/2 Ml Sdv IV 03/03/20 22:01 20 mg Q12 SELVIN Administration Glucagon 1 mg 03/03/20 06:04 Glucagen Inj 1 Mg Vial IM 04/02/20 06:03 PRN PRN Evaluate for BG < 70 Protocol Glucose 15 gm 03/03/20 06:04 Glutose 40% Gel 15 Gm Tube PO 04/02/20 06:03 PRN PRN FOR BG 50-69 IN ALERT PATIENT Protocol Glucose 30 gm 03/03/20 06:04 Glutose 40% Gel 15 Gm Tube PO 04/02/20 06:03 PRN PRN FOR BG < 50 IN ALERT PATIENT Protocol Heparin Sodium (Porcine) 5,000 unit 03/03/20 06:00 03/03/20 07:49 Heparin Inj 5,000 Units/Ml 1 Ml Vial SUBCUT 04/02/20 05:59 Not Given Q8 SELVIN Insulin Human Lispro 0 - 12 unit 03/03/20 08:00 03/03/20 12:17 Humalog Insulin 100 Unit/1 Ml 3 Ml Vial SUBCUT 04/02/20 07:59 4 unit ACHS SELVIN Administration Protocol Isosorbide Dinitrate 60 mg 03/03/20 10:00 03/03/20 09:39 Isordil Titradose 20 Mg Tablet PO 04/02/20 09:59 60 mg DAILY SELVIN Administration Losartan Potassium 50 mg 03/03/20 10:00 03/03/20 09:39 Cozaar 50 Mg Tablet PO 04/02/20 09:59 50 mg DAILY SELVIN Administration Methylprednisolone Sodium Succinate 40 mg 03/03/20 14:00 Solu-Medrol Inj/Pf 40 Mg/1 Ml Sdv IV 04/02/20 13:59 Q8 SELVIN Ondansetron HCl 4 mg 03/03/20 05:56 Zofran Odt 4 Mg Tablet PO 04/02/20 05:55 Q6HP PRN FOR NAUSEA/VOMITING Discontinued Medications Generic Name Dose Route Start Last Admin Trade Name Freq PRN Reason Stop Dose Admin Azithromycin 500 mg 03/03/20 04:28 03/03/20 04:54 Zithromax Inj 500 Mg Vial IV 03/03/20 04:29 500 mg IVBAG (ED) ONE Administration Bumetanide 1 mg 03/03/20 04:29 03/03/20 04:48 Bumex Inj/Pf 1 Mg/4 Ml Sdv IV 03/03/20 04:30 1 mg NOW ONE Administration Carvedilol 12.5 mg 03/03/20 10:00 03/03/20 09:40 Coreg 12.5 Mg Tablet PO 04/02/20 09:59 12.5 mg Q12 SELVIN Administration Dexamethasone Sodium Phosphate 10 mg 03/03/20 04:28 03/03/20 04:48 Decadron Inj 10 Mg/1 Ml Vial IV 03/03/20 04:29 10 mg NOW ONE Administration Metoprolol Succinate 50 mg 03/03/20 10:00 Toprol Xl 50 Mg Tab.Sr PO 04/02/20 09:59 DAILY SELVIN Assessment & Plan - Diagnosis (1) Hypertensive emergency Is this a current diagnosis for this admission?: Yes Plan: Her blood pressure is now improved although not at goal. It is unclear whether she developed elevated blood pressures from her respiratory distress due to pulmonary edema or whether she had pulmonary edema from the hypertensive emergency. Recommendations: -Continue with current medical management for now. -I expect her blood pressure to continue downtrending once she is diuresed. -Her blood pressure goal is 130/80 or below. We will titrate her medications accordingly. (2) Heart failure with reduced ejection fraction Is this a current diagnosis for this admission?: Yes Plan: The patient has both physical exam, laboratory and radiographic evidence of fluid overload secondary to heart failure with reduced ejection fraction. Unfortunately she does have chronic kidney disease which may interfere or limits our abilities to diurese her. The etiology of her heart failure is unclear however she now has a positive troponin. Unfortunately I do not have a prior echocardiogram to compare to. She is already on ARB and beta-susy as well as furosemide which she received 1 dose of 20 mg IV at approximately 0900. Recommendations: -Repeat Lasix IV 20 mg approximately 8 hours after the first dose with close attention to her renal function. -Continue with current medical management for now. -Restrict fluid intake to 1500 cc daily. -Low sodium diet, less than 1500 mg daily. -Strict intake and output. -Daily weights. -Daily BMP and magnesium and replace electrolytes as needed. -Get records from her outpatient occupational therapist home based. (3) Elevated troponin I level Is this a current diagnosis for this admission?: Yes Plan: Her troponin just became positive at 0.81. Whether this is a type II WI versus an non-STEMI it is unclear at this point however her ejection fraction is decreased and she apparently has a history of coronary artery disease or at least chest pain in the past therefore I will give her the benefit of the doubt and will initiate anticoagulation. She has remained pain-free since admission. Recommendations: -Anticoagulation of your choice, renally dosed. -Continue with ARB, long-acting nitroglycerin and beta-susy. -Get records from outpatient occupational therapist home based.
[2020-03-03] MEDS ORDERED: HEPARIN SOD (PORCINE) 1,000 UNIT/ML 10 ML VIAL IV ONE (12:38)
--- NOTE | 2020-03-03 12:59 | PDOC PROGRESS REPORT ---
Subjective Progress Note for:: 03/03/20 Subjective:: The patient is an 79 year old female with a past medical history of CAD, DM 2, hypertension, hyperlipidemia, CKD, GERD, and Parkinson's disease who was admitted 03/03/2020 with hypertensive emergency, CHF, and non-STEMI. Patient was seen on morning rounds. She is found resting in bed on supplemental oxygen via nasal cannula; she is not home O2 dependent. She reports continued fatigue and shortness of breath. She denies all other symptoms. She specifically denies fever, chills, chest pain, palpitations, atypical chest discomfort symptoms (shoulder discomfort, back pain, reflux), abdominal pain, nausea, vomiting, diarrhea. She has no questions or concerns at this time. No concerns per nursing. Reason For Visit: CHF EXACERBATION Physical Exam Vital Signs: Temp Pulse Resp BP Pulse Ox 97.5 F 103 H 16 162/95 H 96 03/03/20 06:57 03/03/20 06:57 03/03/20 06:57 03/03/20 06:57 03/03/20 06:57 Intake & Output 03/02/20 03/03/20 03/04/20 06:59 06:59 06:59 Weight 63.503 kg General appearance: PRESENT: cooperative, hard of hearing, mild distress, well- developed, well-nourished, other - Frail, elderly Head exam: PRESENT: atraumatic, normocephalic Eye exam: PRESENT: conjunctiva pink, EOMI, PERRLA. ABSENT: scleral icterus Mouth exam: PRESENT: moist, tongue midline Respiratory exam: PRESENT: clear to auscultation jojo, symmetrical, unlabored, other - Supplemental oxygen by nasal cannula. ABSENT: rales, rhonchi, wheezes Cardiovascular exam: PRESENT: RRR. ABSENT: diastolic murmur, rubs, systolic murmur Pulses: PRESENT: normal dorsalis pedis pul Vascular exam: PRESENT: normal capillary refill GI/Abdominal exam: PRESENT: normal bowel sounds, soft. ABSENT: distended, guarding, mass, organolmegaly, rebound, tenderness Rectal exam: PRESENT: deferred Extremities exam: PRESENT: full ROM, +2 edema - Soft, nonpitting, BLE. ABSENT: calf tenderness, clubbing, pedal edema Neurological exam: PRESENT: alert, awake, oriented to person, oriented to place, oriented to time, oriented to situation, CN II-XII grossly intact. ABSENT: mot or sensory deficit Psychiatric exam: PRESENT: appropriate affect, normal mood. ABSENT: homicidal ideation, suicidal ideation Skin exam: PRESENT: dry, intact, warm. ABSENT: cyanosis, rash Results Laboratory Results: 03/03/20 03:21 03/03/20 10:12 03/03/20 03/03/20 03/03/20 03:21 03:21 03:21 WBC 11.0 H RBC 4.35 Hgb 13.0 Hct 38.4 MCV 88 MCH 29.9 MCHC 33.9 RDW 14.0 Plt Count 264 Seg Neutrophils % 81.0 H Carbonic Acid HCO3/H2CO3 Ratio ABG pH ABG pCO2 ABG pO2 ABG HCO3 ABG O2 Saturation ABG Base Excess VBG pH VBG pCO2 VBG HCO3 VBG Base Excess FiO2 Sodium 139.2 Potassium 5.1 H Chloride 105 Carbon Dioxide 20 L Anion Gap 14 BUN 45 H Creatinine 2.38 H Est GFR ( Amer) 24 L Glucose 190 H Lactic Acid 2.2 H Calcium 10.4 H Total Bilirubin 0.5 AST 43 H Alkaline Phosphatase 136 H Total Protein 7.2 Albumin 4.3 03/03/20 03/03/20 03/03/20 03:41 04:35 10:12 WBC RBC Hgb Hct MCV MCH MCHC RDW Plt Count Seg Neutrophils % Carbonic Acid Cancelled HCO3/H2CO3 Ratio Cancelled ABG pH Cancelled ABG pCO2 Cancelled ABG pO2 Cancelled ABG HCO3 Cancelled ABG O2 Saturation Cancelled ABG Base Excess Cancelled VBG pH 7.31 VBG pCO2 42.2 VBG HCO3 20.6 VBG Base Excess -5.5 FiO2 Cancelled Sodium 135.1 L Potassium 5.6 H Chloride 104 Carbon Dioxide 15 L Anion Gap 16 BUN 48 H Creatinine 2.29 H Est GFR ( Amer) 25 L Glucose 277 H Lactic Acid Calcium 10.1 Total Bilirubin AST Alkaline Phosphatase Total Protein Albumin 03/03/20 10:12 WBC RBC Hgb Hct MCV MCH MCHC RDW Plt Count Seg Neutrophils % Carbonic Acid HCO3/H2CO3 Ratio ABG pH ABG pCO2 ABG pO2 ABG HCO3 ABG O2 Saturation ABG Base Excess VBG pH VBG pCO2 VBG HCO3 VBG Base Excess FiO2 Sodium Potassium Chloride Carbon Dioxide Anion Gap BUN Creatinine Est GFR ( Amer) Glucose Lactic Acid 2.7 H Calcium Total Bilirubin AST Alkaline Phosphatase Total Protein Albumin 03/03/20 03/03/20 03/03/20 03:21 03:21 10:12 Creatine Kinase 103 144 H CK-MB (CK-2) Troponin I 0.074 NT-Pro-B Natriuret Pep 31462 H 03/03/20 10:12 Creatine Kinase CK-MB (CK-2) 10.00 H Troponin I 0.801 NT-Pro-B Natriuret Pep Impressions: Chest X-Ray 03/03/20 03:26 IMPRESSION: 1. Small right pleural effusion. 2. Interval development of mild diffuse interstitial prominence, suspicious for interstitial edema. More focal increased density in the right lower lung may represent atelectasis. Pneumonia not excluded. Assessment and Plan - Diagnosis (1) Non-ST elevation (NSTEMI) myocardial infarction Is this a current diagnosis for this admission?: Yes Plan: Patient reported chest heaviness x 1 month, PND Hx of CAD EKG sinus rhythm, no ST elevation; repeat EKG is unchanged. Troponins are trending up; 0.074-> 0.801 Admitted to the medical floor on continuous telemetry. Continue on aspirin, continue ARB, beta susy, ISDN Patient with reported Statin allergy. Discussed with Dr. Welsh regarding anticoagulation, will start on Heparin gtt as echo shows reduced EF and global hypokenesis. Unable to determine at this time NSTEMI Type I vs Type II (2) Heart failure with reduced ejection fraction Is this a current diagnosis for this admission?: Yes Plan: Echocardiogram report pending; spoke with Dr. Welsh. That patient shows reduced ejection fraction with global hypokinesis. Metoprolol adjusted to carvedilol 6.25 mg twice daily as recommended by Dr. Welsh. Continues on isosorbide and losartan. Diuresing with furosemide 20 mg IV twice daily. Cardiac diet. Daily weights. Strict I&O's. (3) Hypertensive emergency Is this a current diagnosis for this admission?: Yes Plan: Blood pressures are improved. Came in with BP 180/127; decreased to 162/95 this morning. - CXR pulm congestion - +ve crackles on exam, +ve JVD - Trop 0.074-> 0.801 - BNP 01752 - EKG sinus rhythm - s/p nitro drip, 1 dose bumex briefly on bipap; all discontinued while in ED Cardiology is consulted; appreciate Dr. Welsh's assistance Have started lasix 20 mg IV twice daily Home meds resumed: ISDN, ARB Metorprolol adjusted to Carvedilol per Dr. Welsh's recommendations (4) CKD (chronic kidney disease) stage 4, GFR 15-29 ml/min Is this a current diagnosis for this admission?: Yes Plan: - Crea 2.29 which is around her baseline Optimize cardiac output. Avoid nephrotoxic medications as able. Renally dosed where appropriate. Follow-up chemistries. Daily weights, strict I&O's. (5) Hyperkalemia Is this a current diagnosis for this admission?: Yes Plan: Now receiving furosemide for diuresis. Follow-up EKG is negative for peaked T waves. Will provide lactulose x1. Follow-up chemistries. (6) Hypercalcemia Is this a current diagnosis for this admission?: Yes Plan: Resolved. Monitor chemistries. (7) Lactic acid acidosis Is this a current diagnosis for this admission?: Yes Plan: Secondary to hypertensive emergency, non-STEMI Trend lactic acid. Remaining management as above. (8) Parkinson disease Is this a current diagnosis for this admission?: Yes Plan: - resumed carbidopa/levodopa (9) Type 2 diabetes mellitus Qualifiers: Diabetes mellitus terminal carman insulin use: without chcf use Chronic kidney disease stage: stage 3 (moderate) Is this a current diagnosis for this admission?: Yes Plan: Holding oral medications while admitted. We will check A1c with a.m. lab work. Accu-Cheks before meals and at bedtime with Humalog for sliding scale coverage. Hypoglycemia protocol in place. - Time Time Spent with patient: 35 or more minutes Medications reviewed and adjusted accordingly: Yes Anticipated Discharge Disposition: undetermined Anticipated Discharge Timeframe: undetermined
[2020-03-03] MEDS: ALBUTEROL SULFATE 0.083% NEB 2.5 MG/3 ML AMPUL NEB SCH ×2 (14:02→19:43)
[2020-03-03] MEDS ORDERED: LACTULOSE SYRUP 20 GM/30 ML UDCUP PO ONE (15:00)
[2020-03-03] MEDS: METHYLPREDNISOLONE INJ 40 MG/1 ML SDV IV SCH ×2 (15:19→23:19)
[2020-03-03] MEDS: HEPARIN SODIUM,PORCINE/D5W 25,000 UNIT/250 ML RTUINJ IV PRN (15:30)
[2020-03-03] MEDS ORDERED: HEPARIN SOD (PORCINE) 1,000 UNIT/ML 10 ML VIAL IV PRN (15:38)
[2020-03-03 15:45] LABS: ABSOLUTE LYMPHOCYTES (AUTO) 0.3 10^3/uL (0.5-4.7); ABSOLUTE MONOCYTES (AUTO) 0.1 10^3/uL (0.1-1.4); ABSOLUTE NEUT (AUTO) 5.3 10^3/uL (1.7-8.2); BASOPHILS % (AUTO) 0.2 % (0-2); EOSINOPHILS % (AUTO) 0.1 % (0-6); HEMOGLOBIN 12.2 g/dL (12.0-15.5); LYMPHOCYTES % (AUTO) 5.4 % (13-45); MEAN CORPUSCULAR HEMOGLOBIN 30.4 pg (27.0-33.4); MEAN CORPUSCULAR HGB CONC 34.8 g/dL (32.0-36.0); MEAN CORPUSCULAR VOLUME 88 fl (80-97); MONOCYTES % (AUTO) 1.1 % (3-13); PLATELET COUNT 259 10^3/uL (150-450); RED CELL DISTRIBUTION WIDTH 14.1 % (11.5-14.0); SEGMENTED NEUTROPHILS % (AUTO) 93.2 % (42-78); TOTAL CELLS COUNTED % (AUTO) 100 %; WHITE BLOOD COUNT 5.6 10^3/uL (4.0-10.5)
[2020-03-03 15:50] LABS: INTERNATIONAL RATION (INR) 1.14; PROTHROMBIN TIME 14.8 SEC (11.4-15.4)
[2020-03-03 18:49] LABS: APPEARANCE,URINE CLEAR; BILIRUBIN,URINE NEGATIVE (NEGATIVE); COLOR,URINE STRAW; GLUCOSE, URINE 50 mg/dL (NEGATIVE); KETONES,URINE NEGATIVE (NEGATIVE); LEUKOCYTE ESTERASE,URINE NEGATIVE (NEGATIVE); NITRITE,URINE NEGATIVE (NEGATIVE); PROTEIN,URINE NEGATIVE (NEGATIVE); URINE SPECIFIC GRAVITY 1.009; UROBILINOGEN,URINE NEGATIVE mg/dL (<2.0)
--- NOTE | 2020-03-03 19:24 | EKG REPORT ---
SEVERITY:- ABNORMAL ECG - SINUS RHYTHM LOW VOLTAGE IN FRONTAL LEADS BORDERLINE R WAVE PROGRESSION, ANTERIOR LEADS NONSPECIFIC T ABNORMALITIES, LATERAL LEADS : Confirmed by: Tammy Cunha MD 03-Mar-2020 19:23:20
[2020-03-03] MEDS: CARVEDILOL 6.25 MG TABLET PO SCH (23:23)
[2020-03-04] MEDS ORDERED: NITROGLYCERIN/D5W 50 MG/250 ML RTUINJ IV PRN (00:29)
[2020-03-04] MEDS ORDERED: NITROGLYCERIN 2% OINTMENT 1 GM PACKET ONE (00:29)
[2020-03-04] MEDS ORDERED: NITROGLYCERIN 2% OINTMENT 1 GM PACKET TP ONE (00:29)
[2020-03-04] MEDS ORDERED: MORPHINE SULFATE 10 MG/ML INJ IV ONE (00:33)
[2020-03-04] MEDS ORDERED: ASPIRIN 81 MG TABLET, CHEWABLE PO ONE (00:33)
[2020-03-04] MEDS ORDERED: MORPHINE SULFATE 10 MG/ML INJ IV PRN (00:34)
[2020-03-04] MEDS ORDERED: METOPROLOL TARTRATE PF/INJ 5 MG/5 ML SDV IV PRN (00:36)
--- NOTE | 2020-03-04 00:43 | PDOC PROGRESS REPORT ---
Subjective Progress Note for:: 03/04/20 Subjective:: New onset left chest pain Was called to the bedside as the patient was now having crushing left-sided chest pain. She in fact is moaning and writhing in the bed. This is an acute change from earlier today. She is also quite tachycardic and diaphoretic. Reason For Visit: CHF EXACERBATION Physical Exam Vital Signs: Temp Pulse Resp BP Pulse Ox 97.5 F 82 15 127/80 H 92 03/03/20 15:40 03/03/20 19:44 03/03/20 19:44 03/03/20 15:40 03/03/20 19:44 Intake & Output 03/02/20 03/03/20 03/04/20 06:59 06:59 06:59 Intake Total 613 Balance 613 Weight 63.503 kg General appearance: PRESENT: severe distress Head exam: PRESENT: atraumatic, normocephalic Respiratory exam: PRESENT: clear to auscultation jojo - Anteriorly, symmetrical, tachypnea. ABSENT: rales, rhonchi, wheezes Cardiovascular exam: PRESENT: +S1, +S2, tachycardia, other - Difficult to auscultate as the patient was moaning in pain. ABSENT: bradycardia, diastolic murmur, irregular rhythm, systolic murmur GI/Abdominal exam: PRESENT: hypoactive bowel sounds, soft. ABSENT: distended, tenderness Rectal exam: PRESENT: deferred Psychiatric exam: PRESENT: other - Affect reflects her severe discomfort Skin exam: PRESENT: other - Slightly diaphoretic Results Laboratory Results: 03/03/20 14:36 03/03/20 10:12 03/03/20 03/03/20 03/03/20 03:21 03:21 03:21 WBC 11.0 H RBC 4.35 Hgb 13.0 Hct 38.4 MCV 88 MCH 29.9 MCHC 33.9 RDW 14.0 Plt Count 264 Seg Neutrophils % 81.0 H Carbonic Acid HCO3/H2CO3 Ratio ABG pH ABG pCO2 ABG pO2 ABG HCO3 ABG O2 Saturation ABG Base Excess VBG pH VBG pCO2 VBG HCO3 VBG Base Excess FiO2 Sodium 139.2 Potassium 5.1 H Chloride 105 Carbon Dioxide 20 L Anion Gap 14 BUN 45 H Creatinine 2.38 H Est GFR ( Amer) 24 L Glucose 190 H Lactic Acid 2.2 H Calcium 10.4 H Total Bilirubin 0.5 AST 43 H Alkaline Phosphatase 136 H Total Protein 7.2 Albumin 4.3 Urine Color Urine Appearance Urine pH Ur Specific [place] Urine Protein Urine Glucose (UA) Urine Ketones Urine Blood Urine Nitrite Ur Leukocyte Esterase Urine WBC (Auto) Urine RBC (Auto) 03/03/20 03/03/20 03/03/20 03:41 04:35 10:12 WBC RBC Hgb Hct MCV MCH MCHC RDW Plt Count Seg Neutrophils % Carbonic Acid Cancelled HCO3/H2CO3 Ratio Cancelled ABG pH Cancelled ABG pCO2 Cancelled ABG pO2 Cancelled ABG HCO3 Cancelled ABG O2 Saturation Cancelled ABG Base Excess Cancelled VBG pH 7.31 VBG pCO2 42.2 VBG HCO3 20.6 VBG Base Excess -5.5 FiO2 Cancelled Sodium 135.1 L Potassium 5.6 H Chloride 104 Carbon Dioxide 15 L Anion Gap 16 BUN 48 H Creatinine 2.29 H Est GFR ( Amer) 25 L Glucose 277 H Lactic Acid Calcium 10.1 Total Bilirubin AST Alkaline Phosphatase Total Protein Albumin Urine Color Urine Appearance Urine pH Ur Specific [place] Urine Protein Urine Glucose (UA) Urine Ketones Urine Blood Urine Nitrite Ur Leukocyte Esterase Urine WBC (Auto) Urine RBC (Auto) 03/03/20 03/03/20 03/03/20 10:12 14:36 18:15 WBC 5.6 RBC 4.00 Hgb 12.2 Hct 35.0 L MCV 88 MCH 30.4 MCHC 34.8 RDW 14.1 H Plt Count 259 Seg Neutrophils % 93.2 H Carbonic Acid HCO3/H2CO3 Ratio ABG pH ABG pCO2 ABG pO2 ABG HCO3 ABG O2 Saturation ABG Base Excess VBG pH VBG pCO2 VBG HCO3 VBG Base Excess FiO2 Sodium Potassium Chloride Carbon Dioxide Anion Gap BUN Creatinine Est GFR ( Amer) Glucose Lactic Acid 2.7 H Calcium Total Bilirubin AST Alkaline Phosphatase Total Protein Albumin Urine Color STRAW Urine Appearance CLEAR Urine pH 5.0 Ur Specific [place] 1.009 Urine Protein NEGATIVE Urine Glucose (UA) 50 H Urine Ketones NEGATIVE Urine Blood NEGATIVE Urine Nitrite NEGATIVE Ur Leukocyte Esterase NEGATIVE Urine WBC (Auto) 2 Urine RBC (Auto) 1 03/03/20 03/03/20 03/03/20 03:21 03:21 10:12 Creatine Kinase 103 144 H CK-MB (CK-2) Troponin I 0.074 NT-Pro-B Natriuret Pep 32187 H 03/03/20 03/03/20 10:12 14:36 Creatine Kinase CK-MB (CK-2) 10.00 H Troponin I 0.801 1.470 NT-Pro-B Natriuret Pep Impressions: Chest X-Ray 03/03/20 03:26 IMPRESSION: 1. Small right pleural effusion. 2. Interval development of mild diffuse interstitial prominence, suspicious for interstitial edema. More focal increased density in the right lower lung may represent atelectasis. Pneumonia not excluded. Assessment and Plan - Diagnosis (1) Angina pectoris, unstable Is this a current diagnosis for this admission?: Yes Plan: 03/04/2020 Critical care Patient is having crushing left chest pain. Her troponins earlier today went from 0.07-0.8 and then 1.4. I have ordered stat labs including a troponin and a stat EKG this is likely cardiac. She is already on a heparin drip. I put 1 inch of Nitropaste until her nitroglycerin infusion can be started. In addition I have ordered 2.5 mg of metoprolol IV. She is already on carvedilol 6.25 twice daily. With her chest pain she is also tachycardic. She does take 81 mg of aspirin daily and I did order 324 mg of chewable baby aspirin now. In addition she received 2 mg of morphine sulfate with 2 mg available IV every 4 hours as needed. She will transfer to [facility]. Unfortunately she is allergic to statins and therefore no atorvastatin will be administered. (2) Non-ST elevation (NSTEMI) myocardial infarction Is this a current diagnosis for this admission?: Yes Plan: Patient reported chest heaviness x 1 month, PND Hx of CAD EKG sinus rhythm, no ST elevation; repeat EKG is unchanged. Troponins are trending up; 0.074-> 0.801 Admitted to the medical floor on continuous telemetry. Continue on aspirin, continue ARB, beta susy, ISDN Patient with reported Statin allergy. Discussed with Dr. Welsh regarding anticoagulation, will start on Heparin gtt as echo shows reduced EF and global hypokenesis. Unable to determine at this time NSTEMI Type I vs Type II 03/04/2020 Critical care As noted above troponins have been increasing throughout the day. Transfer to IMCU with treatment changes as noted above. (3) Hyperkalemia Is this a current diagnosis for this admission?: Yes Plan: Now receiving furosemide for diuresis. Follow-up EKG is negative for peaked T waves. Will provide lactulose x1. Follow-up chemistries. 03/04/2020 Critical care visit Potassium was 5.6 at 10:00 this morning. This was up from 5.1. The patient was ordered 1 dose of Kayexalate. Recheck potassium levels now. (4) CKD (chronic kidney disease) stage 4, GFR 15-29 ml/min Is this a current diagnosis for this admission?: Yes Plan: - Crea 2.29 which is around her baseline Optimize cardiac output. Avoid nephrotoxic medications as able. Renally dosed where appropriate. Follow-up chemistries. Daily weights, strict I&O's. 03/04/2020 Critical care visit Repeat laboratory studies have been ordered. The patient received 1 dose of Bumex in the emergency department. I will hold on diuretics acutely until I see where her blood pressure ends up with the nitroglycerin and beta-susy therapy. - Time Total Critical Time (Minutes): 45 Medications reviewed and adjusted accordingly: Yes Anticipated Discharge Disposition: Unknown Anticipated Discharge Timeframe: Unknown
[2020-03-04 00:51] LABS: ABSOLUTE LYMPHOCYTES (AUTO) 0.5 10^3/uL (0.5-4.7); ABSOLUTE MONOCYTES (AUTO) 0.1 10^3/uL (0.1-1.4); ABSOLUTE NEUT (AUTO) 8.8 10^3/uL (1.7-8.2); BASOPHILS % (AUTO) 0.2 % (0-2); HEMATOCRIT 38.3 % (36.0-47.0); HEMOGLOBIN 13.1 g/dL (12.0-15.5); LYMPHOCYTES % (AUTO) 5.7 % (13-45); MEAN CORPUSCULAR HEMOGLOBIN 29.6 pg (27.0-33.4); MEAN CORPUSCULAR HGB CONC 34.2 g/dL (32.0-36.0); MEAN CORPUSCULAR VOLUME 87 fl (80-97); MONOCYTES % (AUTO) 1.3 % (3-13); PLATELET COUNT 279 10^3/uL (150-450); RED BLOOD COUNT 4.42 10^6/uL (3.72-5.28); RED CELL DISTRIBUTION WIDTH 14.1 % (11.5-14.0); SEGMENTED NEUTROPHILS % (AUTO) 92.8 % (42-78); TOTAL CELLS COUNTED % (AUTO) 100 %; WHITE BLOOD COUNT 9.5 10^3/uL (4.0-10.5)
[2020-03-04 01:23] LABS: ANION GAP 17 (5-19); BLOOD UREA NITROGEN 60 mg/dL (7-20); CALCIUM 9.7 mg/dL (8.4-10.2); CARBON DIOXIDE 14 mmol/L (22-30); CHLORIDE 104 mmol/L (98-107); GLUCOSE 268 mg/dL (75-110); POTASSIUM 5.1 mmol/L (3.6-5.0)
[2020-03-04] MEDS: ALBUTEROL SULFATE 0.083% NEB 2.5 MG/3 ML AMPUL NEB SCH ×2 (02:04→08:15)
[2020-03-04] MEDS: CARBIDOPA/LEVODOPA 25-100 MG TABLET PO SCH ×3 (05:21→21:58)
[2020-03-04] MEDS: METHYLPREDNISOLONE INJ 40 MG/1 ML SDV IV SCH (05:21)
[2020-03-04] MEDS: INSULIN LISPRO 100 UNIT/ML 3 ML VIAL SUBCUT SCH ×5 (09:07→21:59)
[2020-03-04] MEDS: ASPIRIN 81 MG TABLET, CHEWABLE PO SCH (09:08)
[2020-03-04] MEDS: LOSARTAN POTASSIUM 50 MG TABLET PO SCH (09:08)
[2020-03-04] MEDS: CARVEDILOL 6.25 MG TABLET PO SCH ×2 (09:08→21:58)
[2020-03-04] MEDS: ACETAMINOPHEN 325 MG TABLET PO PRN ×2 (09:19→13:58)
[2020-03-04] MEDS ORDERED: METHYLPREDNISOLONE INJ 40 MG/1 ML SDV IV SCH (10:00)
--- NOTE | 2020-03-04 10:15 | PDOC PROGRESS REPORT ---
Subjective Progress Note for:: 03/04/20 Subjective:: XANDER TORRES is a 79 year old female with history of CAD, type 2 diabetes, hypertension, hyperlipidemia, CKD who is consulted to our service for evaluation of heart failure. The patient was brought to the ED via ambulance due to shortness of breath and chest heaviness. She is followed by Dr. Jacek Calderon with [facility] [place] who was planning on left heart catheterization due to intermittent chest discomfort that started approximately 1 month ago however the procedure never took place due to her chronic kidney disease and abnormal creatinine. When the ambulance went to her house her initial blood pressure was 200/100 therefore she was started on a nitroglycerin drip and BiPAP due to respiratory distress. This morning she is found laying on her bed with some dyspnea. She only complains of feeling tired and sleepy. Her telemetry shows normal sinus rhythm with episodes of sinus tachycardia. 03/04/2020: Unfortunately the patient had a severe episode of angina last night and was begun on on a heparin drip and nitroglycerin drip which is actually maxed out for what can be allowed in the IM ICU. She was also found this morning to have Nitropaste on as well as oral long-acting nitrates. Her troponin peaked at 1.4 and is now downtrending. Her renal function is slightly worse today. She has not had any more episodes of angina since last night. Unfortunately she has not been receiving any Lasix due to her worsening renal function. Her blood pressure, although at goal, is on the low side which could be also contributing to her angina. Physical exam on 03/04/2020: GENERAL: Looks slightly older than stated age. Sleeping comfortably and easily arousable. Oriented x3 with normal mood. Not in acute distress. Well groomed and well developed. HEENT: Normocephalic, healing bruises on the left side of the head and left cheek secondary to a prior fall approximately 1 week ago. Pupils equal. Sclerae anicteric. Oropharynx moist. NECK: No JVD. No carotid bruits. LUNGS: Bilateral rales at the bases. Normal respiratory effort without the use of accessory muscles or intercostal retractions. CARDIOVASCULAR: Regular rate and rhythm, normal S1 and S2 without murmurs, rubs, or gallops. PMI not displaced. ABDOMEN: No masses or tenderness to palpation. No bruit. No splenomegaly or hepatomegaly. No abdominal aorta bruit noted. EXTREMITIES: No edema, no cyanosis, no clubbing. +2 pulses femoral and pedal pulses bilaterally. SKIN: No lesions or rashes. MUSCULOSKELETAL: No chest tenderness to palpation. Cardiac studies: Echocardiogram on 03/03/2020 at [facility]: -Large left pleural effusion. -Poor study. -EF between 30 and 35%. -Mild global hypokinesis. -Grade 2 diastolic dysfunction. -Mild MR, mild to moderate AI. -Right ventricular hypertrophy. Reason For Visit: CHF EXACERBATION Physical Exam Vital Signs: Temp Pulse Resp BP Pulse Ox 97.2 F 91 16 117/69 95 03/04/20 03:45 03/04/20 05:00 03/04/20 03:45 03/04/20 05:00 03/04/20 03:45 Intake & Output 03/02/20 03/03/20 03/04/20 06:59 06:59 06:59 Intake Total 616 Balance 616 Weight 63.503 kg Results Laboratory Results: 03/04/20 00:42 03/04/20 00:42 03/03/20 03/03/20 03/03/20 03:41 04:35 10:12 WBC RBC Hgb Hct MCV MCH MCHC RDW Plt Count Seg Neutrophils % Carbonic Acid Cancelled HCO3/H2CO3 Ratio Cancelled ABG pH Cancelled ABG pCO2 Cancelled ABG pO2 Cancelled ABG HCO3 Cancelled ABG O2 Saturation Cancelled ABG Base Excess Cancelled VBG pH 7.31 VBG pCO2 42.2 VBG HCO3 20.6 VBG Base Excess -5.5 FiO2 Cancelled Sodium 135.1 L Potassium 5.6 H Chloride 104 Carbon Dioxide 15 L Anion Gap 16 BUN 48 H Creatinine 2.29 H Est GFR ( Amer) 25 L Glucose 277 H Lactic Acid Calcium 10.1 Magnesium Urine Color Urine Appearance Urine pH Ur Specific [place] Urine Protein Urine Glucose (UA) Urine Ketones Urine Blood Urine Nitrite Ur Leukocyte Esterase Urine WBC (Auto) Urine RBC (Auto) 03/03/20 03/03/20 03/03/20 10:12 14:36 18:15 WBC 5.6 RBC 4.00 Hgb 12.2 Hct 35.0 L MCV 88 MCH 30.4 MCHC 34.8 RDW 14.1 H Plt Count 259 Seg Neutrophils % 93.2 H Carbonic Acid HCO3/H2CO3 Ratio ABG pH ABG pCO2 ABG pO2 ABG HCO3 ABG O2 Saturation ABG Base Excess VBG pH VBG pCO2 VBG HCO3 VBG Base Excess FiO2 Sodium Potassium Chloride Carbon Dioxide Anion Gap BUN Creatinine Est GFR ( Amer) Glucose Lactic Acid 2.7 H Calcium Magnesium Urine Color STRAW Urine Appearance CLEAR Urine pH 5.0 Ur Specific [place] 1.009 Urine Protein NEGATIVE Urine Glucose (UA) 50 H Urine Ketones NEGATIVE Urine Blood NEGATIVE Urine Nitrite NEGATIVE Ur Leukocyte Esterase NEGATIVE Urine WBC (Auto) 2 Urine RBC (Auto) 1 03/04/20 03/04/20 00:42 00:42 WBC 9.5 RBC 4.42 Hgb 13.1 Hct 38.3 MCV 87 MCH 29.6 MCHC 34.2 RDW 14.1 H Plt Count 279 Seg Neutrophils % 92.8 H Carbonic Acid HCO3/H2CO3 Ratio ABG pH ABG pCO2 ABG pO2 ABG HCO3 ABG O2 Saturation ABG Base Excess VBG pH VBG pCO2 VBG HCO3 VBG Base Excess FiO2 Sodium 134.8 L Potassium 5.1 H Chloride 104 Carbon Dioxide 14 L Anion Gap 17 BUN 60 H Creatinine 2.71 H Est GFR ( Amer) 20 L Glucose 268 H Lactic Acid Calcium 9.7 Magnesium 2.1 Urine Color Urine Appearance Urine pH Ur Specific [place] Urine Protein Urine Glucose (UA) Urine Ketones Urine Blood Urine Nitrite Ur Leukocyte Esterase Urine WBC (Auto) Urine RBC (Auto) 03/03/20 03/03/20 03/03/20 03:21 03:21 10:12 Creatine Kinase 103 144 H CK-MB (CK-2) Troponin I 0.074 NT-Pro-B Natriuret Pep 08076 H 03/03/20 03/03/20 03/04/20 10:12 14:36 00:42 Creatine Kinase CK-MB (CK-2) 10.00 H Troponin I 0.801 1.470 1.090 NT-Pro-B Natriuret Pep Impressions: Chest X-Ray 03/03/20 03:26 IMPRESSION: 1. Small right pleural effusion. 2. Interval development of mild diffuse interstitial prominence, suspicious for interstitial edema. More focal increased density in the right lower lung may represent atelectasis. Pneumonia not excluded. 03/04/20 00:42 03/04/20 00:42 MCV 87 fl (80-97) 03/04/20 00:42 MCH 29.6 pg (27.0-33.4) 10 00:42 MCHC 34.2 g/dL (32.0-36.0) 10 00:42 RDW 14.1 % (11.5-14.0) H 03/04/20 00:42 Seg Neutrophils % 92.8 % (42-78) H 03/04/20 00:42 Carbonic Acid Cancelled 03/03/20 04:35 HCO3/H2CO3 Ratio Cancelled 03/03/20 04:35 ABG pH Cancelled 03/03/20 04:35 ABG pCO2 Cancelled 03/03/20 04:35 ABG pO2 Cancelled 03/03/20 04:35 ABG HCO3 Cancelled 03/03/20 04:35 ABG O2 Saturation Cancelled 03/03/20 04:35 ABG Base Excess Cancelled 03/03/20 04:35 VBG pH 7.31 (7.30-7.42) 03/03/20 03:41 VBG pCO2 42.2 mmHg (35-63) 03/03/20 03:41 VBG HCO3 20.6 mmol/L (20-32) 03/03/20 03:41 VBG Base Excess -5.5 mmol/L 03/03/20 03:41 FiO2 Cancelled 03/03/20 04:35 Chloride 104 mmol/L (98-107) 03/04/20 00:42 Carbon Dioxide 14 mmol/L (22-30) L 03/04/20 00:42 Anion Gap 17 (5-19) 03/04/20 00:42 Est GFR ( Amer) 20 (>60) L 03/04/20 00:42 Glucose 268 mg/dL (75-110) H 03/04/20 00:42 Lactic Acid 2.7 mmol/L (0.7-2.1) H 03/03/20 10:12 Calcium 9.7 mg/dL (8.4-10.2) 03/04/20 00:42 Magnesium 2.1 mg/dL (1.6-2.3) 03/04/20 00:42 Total Bilirubin 0.5 mg/dL (0.2-1.3) 03/03/20 03:21 AST 43 U/L (14-36) H 03/03/20 03:21 Alkaline Phosphatase 136 U/L (38-126) H 03/03/20 03:21 Total Protein 7.2 g/dL (6.3-8.2) 03/03/20 03:21 Albumin 4.3 g/dL (3.5-5.0) 03/03/20 03:21 Urine Color STRAW 03/03/20 18:15 Urine Appearance CLEAR 03/03/20 18:15 Urine pH 5.0 (5.0-9.0) 03/03/20 18:15 Ur Specific [place] 1.009 03/03/20 18:15 Urine Protein NEGATIVE mg/dL (NEGATIVE) 03/03/20 18:15 Urine Glucose (UA) 50 mg/dL (NEGATIVE) H 03/03/20 18:15 Urine Ketones NEGATIVE mg/dL (NEGATIVE) 03/03/20 18:15 Urine Blood NEGATIVE (NEGATIVE) 03/03/20 18:15 Urine Nitrite NEGATIVE (NEGATIVE) 03/03/20 18:15 Ur Leukocyte Esterase NEGATIVE (NEGATIVE) 03/03/20 18:15 Urine WBC (Auto) 2 /HPF 03/03/20 18:15 Urine RBC (Auto) 1 /HPF 03/03/20 18:15 03/03/20 03/03/20 03/03/20 03:21 03:21 10:12 Creatine Kinase 103 144 H CK-MB (CK-2) Troponin I 0.074 NT-Pro-B Natriuret Pep 66719 H 03/03/20 03/03/20 03/04/20 10:12 14:36 00:42 Creatine Kinase CK-MB (CK-2) 10.00 H Troponin I 0.801 1.470 1.090 NT-Pro-B Natriuret Pep Current Medication List Generic Name Dose Route Start Last Admin Trade Name Freq PRN Reason Stop Dose Admin Acetaminophen 650 mg 03/03/20 05:56 Tylenol 325 Mg Tablet PO 04/02/20 05:55 Q4HP PRN FEVER >101 Albuterol 2.5 mg 03/03/20 14:00 03/04/20 02:04 Ventolin 0.083% Neb 2.5 Mg/3 Ml Ampul NEB 04/02/20 13:59 2.5 mg RTQ6 SELVIN Administration Albuterol 2.5 mg 03/03/20 09:00 Ventolin 0.083% Neb 2.5 Mg/3 Ml Ampul NEB 04/02/20 08:59 RTQ2HP PRN SHORTNESS OF BREATH Aspirin 81 mg 03/03/20 10:00 03/03/20 09:39 Aspirin 81 Mg Chewable Tablet PO 04/02/20 09:59 81 mg DAILY SELVIN Administration Carbidopa/Levodopa 1 tab 03/03/20 06:00 03/04/20 05:21 Sinemet 25-100 Mg Tablet PO 04/02/20 05:59 1 tab Q8 SELVIN Administration Carvedilol 6.25 mg 03/03/20 22:00 03/03/20 23:23 Coreg 6.25 Mg Tablet PO 04/02/20 21:59 6.25 mg Q12 SELVIN Administration Dextrose 12.5 gm 03/03/20 06:04 Dextrose Inj 50% Syringe (25 Gm/50 Ml) IV 04/02/20 06:03 PRN PRN FOR BG 50-69 IN ALERT PATIENT Protocol Dextrose 25 gm 03/03/20 06:04 Dextrose Inj 50% Syringe (25 Gm/50 Ml) IV 04/02/20 06:03 PRN PRN PER PROTOCOL Protocol Glucagon 1 mg 03/03/20 06:04 Glucagen Inj 1 Mg Vial IM 04/02/20 06:03 PRN PRN Evaluate for BG < 70 Protocol Glucose 15 gm 03/03/20 06:04 Glutose 40% Gel 15 Gm Tube PO 04/02/20 06:03 PRN PRN FOR BG 50-69 IN ALERT PATIENT Protocol Glucose 30 gm 03/03/20 06:04 Glutose 40% Gel 15 Gm Tube PO 04/02/20 06:03 PRN PRN FOR BG < 50 IN ALERT PATIENT Protocol Heparin Sodium (Porcine) 0 - 12,000 unit 03/03/20 15:38 Heparin Inj 1,000 Unit/Ml 10 Ml Vial IV 04/02/20 15:37 .BOLUS PER PROTOCOL PRN RESPOND TO aPTT VALUE Protocol Heparin Sodium/Dextrose 25,000 unit in 250 mls @ 0 mls/hr 03/03/20 12:38 03/03/20 23:21 Heparin Rtu 25,000 Unit/250 Ml D5w Premix IV 04/02/20 12:37 6.35 mls/hr CONTINUOUS PRN 6.35 mls/hr THIS MED IS NOT "PRN" Titration Protocol Titrate Nitroglycerin/Dextrose 50 mg in 250 mls @ 0 mls/hr 03/04/20 00:29 03/04/20 01:44 Ntg Rtu 50 Mg/D5w 250 Ml Iv Premix Bottle IV 04/03/20 00:28 18 mls/hr CONTINUOUS PRN 18 mls/hr THIS MED IS NOT "PRN" Titration Protocol Titrate Insulin Human Lispro 0 - 12 unit 03/03/20 08:00 03/03/20 23:19 Humalog Insulin 100 Unit/1 Ml 3 Ml Vial SUBCUT 04/02/20 07:59 6 unit ACHS SELVIN Administration Protocol Losartan Potassium 50 mg 03/03/20 10:00 03/03/20 09:39 Cozaar 50 Mg Tablet PO 04/02/20 09:59 50 mg DAILY SELVIN Administration Methylprednisolone Sodium Succinate 40 mg 03/03/20 14:00 03/04/20 05:21 Solu-Medrol Inj/Pf 40 Mg/1 Ml Sdv IV 04/02/20 13:59 40 mg Q8 SELVIN Administration Metoprolol Tartrate 2.5 mg 03/04/20 00:36 03/04/20 00:50 Lopressor Inj/Pf 5 Mg/5 Ml Sdv IV 04/03/20 00:35 2.5 mg Q6HP PRN Administration Give For Hr > 110 Morphine Sulfate 2 mg 03/04/20 00:34 Morphine 10 Mg/Ml Inj IV 03/11/20 00:33 Q4HP PRN FOR CHEST PAIN Ondansetron HCl 4 mg 03/03/20 05:56 Zofran Odt 4 Mg Tablet PO 04/02/20 05:55 Q6HP PRN FOR NAUSEA/VOMITING Discontinued Medications Generic Name Dose Route Start Last Admin Trade Name Freq PRN Reason Stop Dose Admin Aspirin 324 mg 03/04/20 00:33 03/04/20 00:50 Aspirin 81 Mg Chewable Tablet PO 03/04/20 00:34 324 mg NOW ONE Administration Azithromycin 500 mg 03/03/20 04:28 03/03/20 04:54 Zithromax Inj 500 Mg Vial IV 03/03/20 04:29 500 mg IVBAG (ED) ONE Administration Bumetanide 1 mg 03/03/20 04:29 03/03/20 04:48 Bumex Inj/Pf 1 Mg/4 Ml Sdv IV 03/03/20 04:30 1 mg NOW ONE Administration Carvedilol 12.5 mg 03/03/20 10:00 03/03/20 09:40 Coreg 12.5 Mg Tablet PO 04/02/20 09:59 12.5 mg Q12 SELVIN Administration Dexamethasone Sodium Phosphate 10 mg 03/03/20 04:28 03/03/20 04:48 Decadron Inj 10 Mg/1 Ml Vial IV 03/03/20 04:29 10 mg NOW ONE Administration Furosemide 20 mg 03/03/20 10:00 03/03/20 23:20 Lasix Inj/Pf 20 Mg/2 Ml Sdv IV 03/03/20 22:01 20 mg Q12 SELVIN Administration Heparin Sodium (Porcine) 5,000 unit 03/03/20 06:00 03/03/20 07:49 Heparin Inj 5,000 Units/Ml 1 Ml Vial SUBCUT 04/02/20 05:59 Not Given Q8 [facility] Heparin Sodium (Porcine) 3,800 unit 03/03/20 12:38 03/03/20 15:30 Heparin Inj 1,000 Unit/Ml 10 Ml Vial 60 unit/kg (3800 unit) 03/03/20 12:39 3,800 units IV Administration NOW ONE Isosorbide Dinitrate 60 mg 03/03/20 10:00 03/03/20 09:39 Isordil Titradose 20 Mg Tablet PO 04/02/20 09:59 60 mg DAILY [facility] Administration Lactulose 20 gm 03/03/20 15:00 03/03/20 15:19 Cephulac Syrup 20 Gm/30 Ml Udcup PO 03/03/20 15:01 20 gm NOW ONE Administration Metoprolol Succinate 50 mg 03/03/20 10:00 Toprol Xl 50 Mg Tab.Sr PO 04/02/20 09:59 DAILY [facility] Morphine Sulfate 2 mg 03/04/20 00:33 03/04/20 00:50 Morphine 10 Mg/Ml Inj IV 03/04/20 00:34 2 mg NOW ONE Administration Nitroglycerin 1 gm 03/04/20 00:29 Nitrol 2% Ointment 1gm Packet TP 03/04/20 00:30 NOW ONE Nitroglycerin Confirm 03/04/20 00:29 03/04/20 02:22 Nitrol 2% Ointment 1gm Packet Administered 03/04/20 00:30 Not Given Dose 1 gm .ROUTE .[facility] Assessment & Plan - Diagnosis (1) Hypertensive emergency Is this a current diagnosis for this admission?: Yes Plan: Now resolved and the blood pressure is on the low side. Recommendations: -Continue with current medical management for now. -Start weaning of nitroglycerin drip in an attempt to recover some systolic blood pressure as he has been demonstrated that systolic blood pressures less than 110 mmHg may contribute to worsening of angina in patients with coronary artery disease. (2) Heart failure with reduced ejection fraction Is this a current diagnosis for this admission?: Yes Plan: The patient has both physical exam, laboratory and radiographic evidence of fluid overload secondary to heart failure with reduced ejection fraction. Unfortunately she does have chronic kidney disease which may interfere or limits our abilities to diurese her. The etiology of her heart failure is likely secondary to ischemic heart disease. Unfortunately her renal dysfunction is getting worse therefore our ability to diurese her is limited however it is also possible that her renal function may have worsened because of blood pressure on the low side as well as parenchymal edema from fluid overload therefore we will try gentle diuresis with Lasix IV 10 mg twice daily. Recommendations: -Start Lasix 10 mg IV twice daily with close attention to her renal function. -Continue with current medical management for now. -Restrict fluid intake to 1500 cc daily. -Low sodium diet, less than 1500 mg daily. -Strict intake and output. -Daily weights. -Daily BMP and magnesium and replace electrolytes as needed. -Get records from her outpatient demolition hammer operator. (3) Elevated troponin I level Is this a current diagnosis for this admission?: Yes Plan: Her troponin peaked at 1.4 which is consistent with a non-STEMI and is now trending down however the patient had unstable angina last night and was treated with a nitroglycerin drip as well as heparin. Since then she has not had any more angina events. Unfortunately her renal dysfunction, her general medical state limits our ability to proceed further. At this point she will continue to be treated medically and palliative/comfort care should be discussed with her a nd her family. I discussed the case and gave my recommendations to her hospitalist, Chika Madsen as well as her outpatient demolition hammer operator, Dr. Jacek Calderon who agrees with my plan. Recommendations: -May continue heparin for another 24 or 48 hours. -Wean off nitroglycerin drip. -Discontinue Nitropaste. -Uptitrate long-acting p.o. nitrate. -If the patient continues to have angina, a calcium channel susy can be added to her regimen if her blood pressure allows. -Continue with ARB and beta-susy. -Cardiology does not have further recommendations therefore we will sign off the case, please reconsult if necessary.
--- NOTE | 2020-03-04 11:03 | CDI QUERY ---
CDI Query CDI Review: We are seeking further clarification of documentation to reflect the severity of illness of your patient. Per Cardiology Consult Notes: Heart failure with reduced ejection fraction Is this a current diagnosis for this admission?: Yes Plan: The patient has both physical exam, laboratory and radiographic evidence of fluid overload secondary to heart failure with reduced ejection fraction. Unfortunately she does have chronic kidney disease which may interfere or limits our abilities to diurese her. The etiology of her heart failure is likely secondary to ischemic heart disease Based on your medical judgement, can you further clarify in the Progress Notes: Type of heart failure: >Systolic Diastolic > Combined systolic/diastolic > Other (please specify) > None of the above / Not applicable - AND Severity of heart failure >Acute, exacerbation, or decompensation > Chronic > Acute on chronic > Other (please specify) > None of the above / Not applicable Thank you for your consideration. CAROL ANN Wong RN Clinical [employer]el Locomotive Firer Physician Advisor
[2020-03-04 12:29] LABS: HEMATOCRIT 32.7 % (36.0-47.0); MEAN CORPUSCULAR HEMOGLOBIN 29.5 pg (27.0-33.4); MEAN CORPUSCULAR HGB CONC 33.5 g/dL (32.0-36.0); MEAN CORPUSCULAR VOLUME 88 fl (80-97); PLATELET COUNT 256 10^3/uL (150-450); RED BLOOD COUNT 3.72 10^6/uL (3.72-5.28); WHITE BLOOD COUNT 13.5 10^3/uL (4.0-10.5)
[2020-03-04 12:32] LABS: INTERNATIONAL RATION (INR) 1.21; PROTHROMBIN TIME 15.5 SEC (11.4-15.4)
[2020-03-04] MEDS ORDERED: FUROSEMIDE INJ/PF 20 MG/2 ML SDV IV ONE (12:45)
[2020-03-04 12:57] LABS: ALBUMIN 3.5 g/dL (3.5-5.0); ALKALINE PHOSPHATASE 93 U/L (38-126); ANION GAP 13 (5-19); ASPARTATE AMINO TRANSFERASE 68 U/L (14-36); BILIRUBIN,DIRECT 0.2 mg/dL (0.0-0.4); BILIRUBIN,TOTAL 0.5 mg/dL (0.2-1.3); BLOOD UREA NITROGEN 66 mg/dL (7-20); CALCIUM 8.9 mg/dL (8.4-10.2); CARBON DIOXIDE 17 mmol/L (22-30); CHLORIDE 102 mmol/L (98-107); GLUCOSE 275 mg/dL (75-110); POTASSIUM 5.2 mmol/L (3.6-5.0)
[2020-03-04 13:00] LABS: ABSOLUTE LYMPHOCYTES# (MANUAL) 0.5 10^3/uL (0.5-4.7); ABSOLUTE MONOCYTES # (MANUAL) 0.4 10^3/uL (0.1-1.4); BASOPHILS % (MANUAL) 0 % (0-2); EOSINOPHILS % (MANUAL) 0 % (0-6); LYMPHOCYTES % (MANUAL) 4 % (13-45); MONOCYTES % (MANUAL) 3 % (3-13); SEGMENTED NEUTROPHILS % (MAN) 93 % (42-78); TOTAL CELLS COUNTED 100
[2020-03-04 13:01] LABS: PLATELET COMMENT ADEQUATE; RBC MORPHOLOGY COMMENT NORMO-CYTIC/CHROMIC
[2020-03-04 14:35] LABS: APPEARANCE,URINE CLEAR; BILIRUBIN,URINE NEGATIVE (NEGATIVE); COLOR,URINE YELLOW; GLUCOSE, URINE 50 mg/dL (NEGATIVE); KETONES,URINE NEGATIVE (NEGATIVE); LEUKOCYTE ESTERASE,URINE NEGATIVE (NEGATIVE); NITRITE,URINE NEGATIVE (NEGATIVE); PROTEIN,URINE NEGATIVE (NEGATIVE); URINE SPECIFIC GRAVITY 1.014; UROBILINOGEN,URINE NEGATIVE mg/dL (<2.0)
--- NOTE | 2020-03-04 14:50 | PDOC PROGRESS REPORT ---
Subjective Progress Note for:: 03/04/20 Subjective:: The patient is an 79 year old female with a past medical history of CAD, DM 2, hypertension, hyperlipidemia, CKD, GERD, and Parkinson's disease who was admitted 03/03/2020 with hypertensive emergency, CHF, and non-STEMI. Patient was seen on morning rounds. She is found resting in bed on supplemental oxygen via nasal cannula; she is not home O2 dependent. She reports continued fatigue. Reports her dyspnea has resolved. Did have episode of chest pain overnight; currently comfortable. She specifically denies fever, chills, chest pain, palpitations, atypical chest discomfort symptoms (shoulder discomfort, back pain, reflux), abdominal pain, nausea, vomiting, diarrhea. She has no questions or concerns at this time. No concerns per nursing. Reason For Visit: CHF EXACERBATION Physical Exam Vital Signs: Temp Pulse Resp BP Pulse Ox 97.5 F 83 18 115/73 96 03/04/20 11:11 03/04/20 11:11 03/04/20 11:11 03/04/20 13:00 03/04/20 11:11 Intake & Output 03/03/20 03/04/20 03/05/20 06:59 06:59 06:59 Intake Total 616 200 Output Total 400 Balance 216 200 Weight 63.503 kg 54.3 kg General appearance: PRESENT: no acute distress, cooperative, hard of hearing, well-developed, well-nourished, other - Frail, elderly Head exam: PRESENT: atraumatic, normocephalic Eye exam: PRESENT: conjunctiva pink, EOMI, PERRLA. ABSENT: scleral icterus Mouth exam: PRESENT: moist, tongue midline Respiratory exam: PRESENT: clear to auscultation jojo, symmetrical, unlabored, other - supplemental oxygen by [place]. ABSENT: rales, rhonchi, wheezes Cardiovascular exam: PRESENT: RRR, +S1, +S2. ABSENT: diastolic murmur, rubs, systolic murmur Vascular exam: PRESENT: normal capillary refill Extremities exam: PRESENT: full ROM, +1 edema - Soft, nonpitting, BLE. ABSENT: calf tenderness, clubbing, pedal edema Neurological exam: PRESENT: alert, awake, oriented to person, oriented to place, oriented to time, oriented to situation, CN II-XII grossly intact, other - intermittently, pleasantly, confused and forgetful. ABSENT: motor sensory deficit Psychiatric exam: PRESENT: anxious, appropriate affect, normal mood. ABSENT: homicidal ideation, suicidal ideation Skin exam: PRESENT: dry, intact, warm. ABSENT: cyanosis, rash Results Laboratory Results: 03/04/20 12:10 03/04/20 12:10 03/03/20 03/03/20 03/04/20 14:36 18:15 00:42 WBC 5.6 9.5 RBC 4.00 4.42 Hgb 12.2 13.1 Hct 35.0 L 38.3 MCV 88 87 MCH 30.4 29.6 MCHC 34.8 34.2 RDW 14.1 H 14.1 H Plt Count 259 279 Seg Neutrophils % 93.2 H 92.8 H Sodium Potassium Chloride Carbon Dioxide Anion Gap BUN Creatinine Est GFR ( Amer) Glucose Calcium Magnesium Total Bilirubin AST Alkaline Phosphatase Total Protein Albumin Urine Color STRAW Urine Appearance CLEAR Urine pH 5.0 Ur Specific [place] 1.009 Urine Protein NEGATIVE Urine Glucose (UA) 50 H Urine Ketones NEGATIVE Urine Blood NEGATIVE Urine Nitrite NEGATIVE Ur Leukocyte Esterase NEGATIVE Urine WBC (Auto) 2 Urine RBC (Auto) 1 03/04/20 03/04/20 03/04/20 00:42 12:10 12:10 WBC 13.5 H RBC 3.72 Hgb 11.0 L D Hct 32.7 L MCV 88 MCH 29.5 MCHC 33.5 RDW 14.0 Plt Count 256 Seg Neutrophils % Not Reportable Sodium 134.8 L 131.8 L Potassium 5.1 H 5.2 H Chloride 104 102 Carbon Dioxide 14 L 17 L Anion Gap 17 13 BUN 60 H 66 H Creatinine 2.71 H 2.72 H Est GFR ( Amer) 20 L 20 L Glucose 268 H 275 H Calcium 9.7 8.9 Magnesium 2.1 Total Bilirubin 0.5 AST 68 H Alkaline Phosphatase 93 Total Protein 6.0 L Albumin 3.5 Urine Color Urine Appearance Urine pH Ur Specific [place] Urine Protein Urine Glucose (UA) Urine Ketones Urine Blood Urine Nitrite Ur Leukocyte Esterase Urine WBC (Auto) Urine RBC (Auto) 03/03/20 03/03/20 03/03/20 03:21 03:21 10:12 Creatine Kinase 103 144 H CK-MB (CK-2) Troponin I 0.074 NT-Pro-B Natriuret Pep 02355 H 03/03/20 03/03/20 03/04/20 10:12 14:36 00:42 Creatine Kinase CK-MB (CK-2) 10.00 H Troponin I 0.801 1.470 1.090 NT-Pro-B Natriuret Pep Impressions: Chest X-Ray 03/03/20 03:26 IMPRESSION: 1. Small right pleural effusion. 2. Interval development of mild diffuse interstitial prominence, suspicious for interstitial edema. More focal increased density in the right lower lung may represent atelectasis. Pneumonia not excluded. Assessment and Plan - Diagnosis (1) Non-ST elevation (NSTEMI) myocardial infarction Is this a current diagnosis for this admission?: Yes Plan: Patient reported chest heaviness x 1 month, PND. Severe episode again overnight. Hx of CAD EKG sinus rhythm, no ST elevation; repeat EKG is unchanged. Troponins are trending up; 0.074-> 0.801-> 1.470-> 1.09 Admitted to the medical floor on continuous telemetry. Continue on aspirin, continue ARB and beta susy Continue Heparin gtt x 48 hours. Placed on a Nitro gtt overnight; have weaned off. Resume Imdur; will titrate up as tolerated Start Ranexa Patient with reported Statin allergy. Discussed with Dr. Welsh; patient is not candidate for intervention. Medical management only. Has signed off. (2) Heart failure with reduced ejection fraction Is this a current diagnosis for this admission?: Yes Plan: Echocardiogram report pending; spoke with Dr. Welsh. That patient shows reduced ejection fraction with global hypokinesis. Metoprolol adjusted to carvedilol 6.25 mg twice daily as recommended by Dr. Welsh. Continues on isosorbide and losartan. Diuresing with furosemide 10 mg IV twice daily. Cardiac diet. Daily weights. Strict I&O's. (3) Hypertensive emergency Is this a current diagnosis for this admission?: Yes Plan: Blood pressures are improved. Came in with BP 180/127; decreased to 162/95 this morning. - CXR pulm congestion - +ve crackles on exam, +ve JVD - Trop 0.074-> 0.801 - BNP 18934 - EKG sinus rhythm - s/p nitro drip, 1 dose bumex briefly on bipap; all discontinued while in ED Cardiology is consulted; appreciate Dr. Welsh's assistance Have started lasix 20 mg IV twice daily Home meds resumed: ISDN, ARB Metorprolol adjusted to Carvedilol per Dr. Welsh's recommendations (4) CKD (chronic kidney disease) stage 4, GFR 15-29 ml/min Is this a current diagnosis for this admission?: Yes Plan: - Crea 2.29 which is around her baseline Optimize cardiac output. Avoid nephrotoxic medications as able. Renally dosed where appropriate. Follow-up chemistries. Daily weights, strict I&O's. 03/04/2020 Critical care visit Repeat laboratory studies have been ordered. The patient received 1 dose of Bumex in the emergency department. I will hold on diuretics acutely until I see where her blood pressure ends up with the nitroglycerin and beta-susy thera py. (5) Hyperkalemia Is this a current diagnosis for this admission?: Yes Plan: Now receiving furosemide for diuresis. EKG is negative for peaked T waves. Previously received lactulose x1. Will trial Kayexalate. Follow-up chemistries. (6) Hypercalcemia Is this a current diagnosis for this admission?: Yes Plan: Resolved. Monitor chemistries. (7) Lactic acid acidosis Is this a current diagnosis for this admission?: Yes Plan: Secondary to hypertensive emergency, non-STEMI Trend lactic acid. Remaining management as above. (8) Parkinson disease Is this a current diagnosis for this admission?: Yes Plan: - resumed carbidopa/levodopa (9) Type 2 diabetes mellitus Qualifiers: Diabetes mellitus termite inspector insulin use: without fci use Chronic kidney disease stage: stage 3 (moderate) Is this a current diagnosis for this admission?: Yes Plan: Holding oral medications while admitted. We will check A1c with a.m. lab work. Accu-Cheks before meals and at bedtime with Humalog for sliding scale coverage. Hypoglycemia protocol in place. (10) Hyponatremia Is this a current diagnosis for this admission?: Yes Plan: Mild hyponatremia. Now receiving Lasix. Fluid restricted. Follow up chemistry - Time Time Spent with patient: 25-34 minutes Medications reviewed and adjusted accordingly: Yes Anticipated Discharge Disposition: undetermined Anticipated Discharge Timeframe: >72 hrs
[2020-03-04] MEDS ORDERED: SODIUM POLYSTYRENE SULFONATE 15 GM/60 ML PO ONE (15:00)
[2020-03-04] MEDS: NITROGLYCERIN 0.4 MG/TAB 25 TAB/BOTTLE SL PRN ×2 (17:49→19:05)
--- NOTE | 2020-03-04 17:57 | XCELERA REPORT ---
[address] [address] Transthoracic Echocardiogram Report Name: XANDER TORRES Age: 79 yrs Gender: Female : 1940 Patient Status: Inpatient Patient Location: [address] [place], [place] [address] Study Date: 03/03/2020 09:24 AM Height: 62 in Weight: 140 lb BSA: 1.6 m2 Procedure: A complete two-dimensional transthoracic echocardiogram was performed (2D, M-mode, spectral and color flow Doppler). Study Quality: Poor. Reason For Study: CHF Ordering Physician: KALANI GTZ Performed By: Yulia Valente Interpretation Summary -Large pleural effusion. -Poor study. -EF between 30 and 35%. -Mild global hypokinesis. -Grade 2 diastolic dysfunction. -Mild MR, mild to moderate AI. -Right ventricular hypertrophy. MMode/2D Measurements & Calculations RVDd: 1.8 cm LVIDd: 4.2 cm FS: 10.2 % Ao root diam: 2.2 cm IVSd: 1.1 cm LVIDs: 3.8 cm EDV(Teich): 77.8 ml Ao root area: 3.7 cm2 LVPWd: 1.0 cm ESV(Teich): 60.3 ml EF(Teich): 22.5 % Doppler Measurements & Calculations MV E max danielle: MV dec slope: Ao V2 max: AI max danielle: 44.0 cm/sec 246.3 cm/sec2 107.2 cm/sec 401.1 cm/sec MV A max danielle: MV dec time: Ao max PG: AI max P.4 mmHg 82.1 cm/sec 0.18 sec 4.6 mmHg AI dec slope: MV E/A: 0.54 156.8 cm/sec2 AI P1/2t: 749.2 msec LV V1 max PG: PA V2 max: 2.1 mmHg 116.5 cm/sec LV V1 max: PA max P.4 mmHg 73.0 cm/sec Left Ventricle The left ventricle is normal in size. Left ventricular systolic function is moderate to severely reduced. The Ejection Fraction estimate is 30-35%. Doppler measurements suggest pseudonormalized left ventricular relaxation, which is associated with grade II/IV or mild to moderate diastolic dysfunction. There is mild global hypokinesis of the left ventricle. Right Ventricle The right ventricle is normal size. The right ventricle appears to be hypertrophied. The right ventricular systolic function is normal. Atria The right atrium is normal. The left atrial size is normal. Interarterial septum not well visualized and not well dopplered. Cannot comment on ASD/PFO presence. Mitral Valve The mitral valve is normal in structure and function. There is a mild amount of mitral regurgitation. Aortic Valve The aortic valve is trileaflet. There is a mild to moderate amount of aortic regurgitation. Tricuspid Valve The tricuspid is normal in structure and function. No tricuspid regurgitation. Pulmonic Valve The pulmonic valve is not well visualized. Effusions Large pleural effusion. : KALANI GTZ Antonio
[2020-03-04] MEDS ORDERED: ISOSORBIDE MONONITRATE 30 MG TAB.ER.24H PO SCH (18:00)
[2020-03-04] MEDS: ISOSORBIDE MONONITRATE 30 MG TAB.ER.24H PO SCH (19:55)
[2020-03-04] MEDS: RANOLAZINE 500 MG TAB.SR.12H PO SCH (21:58)
[2020-03-04] MEDS: FUROSEMIDE INJ/PF 20 MG/2 ML SDV IV SCH (21:59)
[2020-03-04] MEDS ORDERED: CARVEDILOL 6.25 MG TABLET PO SCH (22:00)
[2020-03-04] MEDS ORDERED: CARVEDILOL 12.5 MG TABLET PO SCH ×2 (22:00)
--- NOTE | 2020-03-05 00:48 | EKG REPORT ---
SEVERITY:- ABNORMAL ECG - SINUS RHYTHM MULTIPLE VENTRICULAR PREMATURE COMPLEXES PROBABLE INFERIOR INFARCT, AGE INDETERMINATE LATERAL LEADS ARE ALSO INVOLVED : Confirmed by: Tammy Cunha MD 05-Mar-2020 00:47:29
[2020-03-05] MEDS: ISOSORBIDE MONONITRATE 30 MG TAB.ER.24H PO SCH ×2 (05:04→17:36)
[2020-03-05] MEDS: CARBIDOPA/LEVODOPA 25-100 MG TABLET PO SCH ×3 (05:04→21:45)
[2020-03-05] MEDS: HEPARIN SODIUM,PORCINE/D5W 25,000 UNIT/250 ML RTUINJ IV PRN (05:20)
[2020-03-05 06:47] LABS: HEMATOCRIT 34.9 % (36.0-47.0); HEMOGLOBIN 11.7 g/dL (12.0-15.5); MEAN CORPUSCULAR HEMOGLOBIN 29.6 pg (27.0-33.4); MEAN CORPUSCULAR HGB CONC 33.4 g/dL (32.0-36.0); MEAN CORPUSCULAR VOLUME 89 fl (80-97); PLATELET COUNT 249 10^3/uL (150-450); RED BLOOD COUNT 3.95 10^6/uL (3.72-5.28); RED CELL DISTRIBUTION WIDTH 14.2 % (11.5-14.0); WHITE BLOOD COUNT 13.2 10^3/uL (4.0-10.5)
[2020-03-05 07:02] LABS: ANION GAP 16 (5-19); BLOOD UREA NITROGEN 75 mg/dL (7-20); CALCIUM 8.9 mg/dL (8.4-10.2); CARBON DIOXIDE 17 mmol/L (22-30); CHLORIDE 103 mmol/L (98-107); GLUCOSE 204 mg/dL (75-110); POTASSIUM 4.8 mmol/L (3.6-5.0)
[2020-03-05 07:30] LABS: ABSOLUTE LYMPHOCYTES# (MANUAL) 0.1 10^3/uL (0.5-4.7); ABSOLUTE MONOCYTES # (MANUAL) 0.1 10^3/uL (0.1-1.4); BASOPHILS % (MANUAL) 0 % (0-2); EOSINOPHILS % (MANUAL) 0 % (0-6); LYMPHOCYTES % (MANUAL) 1 % (13-45); MONOCYTES % (MANUAL) 1 % (3-13); SEGMENTED NEUTROPHILS % (MAN) 98 % (42-78); TOTAL CELLS COUNTED 100
[2020-03-05 07:32] LABS: ANISOCYTOSIS SLIGHT; PLATELET COMMENT ADEQUATE
[2020-03-05] MEDS: INSULIN LISPRO 100 UNIT/ML 3 ML VIAL SUBCUT SCH ×4 (08:48→21:43)
[2020-03-05] MEDS: RANOLAZINE 500 MG TAB.SR.12H PO SCH ×2 (10:30→21:45)
[2020-03-05] MEDS: LOSARTAN POTASSIUM 50 MG TABLET PO SCH (10:31)
[2020-03-05] MEDS: CARVEDILOL 6.25 MG TABLET PO SCH ×2 (10:31→21:44)
[2020-03-05] MEDS: ASPIRIN 81 MG TABLET, CHEWABLE PO SCH (10:31)
[2020-03-05] MEDS: FUROSEMIDE INJ/PF 20 MG/2 ML SDV IV SCH ×2 (10:31→21:43)
--- NOTE | 2020-03-05 11:42 | PDOC PROGRESS REPORT ---
Subjective Progress Note for:: 03/05/20 Subjective:: The patient is an 79 year old female with a past medical history of CAD, DM 2, hypertension, hyperlipidemia, CKD, GERD, and Parkinson's disease who was admitted 03/03/2020 with hypertensive emergency, CHF, and non-STEMI. Patient was seen on morning rounds. She is found resting in bed on supplemental oxygen via nasal cannula; she is not home O2 dependent. She reports continued fatigue. Reports her dyspnea has resolved. Did have episode of chest pain early last evening, but none since. Currently comfortable. Some anxiety. She specifically denies fever, chills, chest pain, palpitations, atypical chest discomfort symptoms (shoulder discomfort, back pain, reflux), abdominal pain, nausea, vomiting, diarrhea. She has no questions or concerns at this time. No concerns per nursing. During previous conversation w/ patients daughter, I was informed that patient's has moderate dementia. Per nursing, patient's son-in-law informed them that her daughter is now admitted to [facility]. I did attempt to call the daughter's number; left a voice mail to return call at her convenience. Reason For Visit: CHF EXACERBATION Physical Exam Vital Signs: Temp Pulse Resp BP Pulse Ox 97.8 F 94 16 113/76 97 03/05/20 07:21 03/05/20 07:21 03/05/20 07:21 03/05/20 07:21 03/05/20 07:21 Intake & Output 03/04/20 03/05/20 03/06/20 06:59 06:59 06:59 Intake Total 616 765 13 Output Total 400 350 Balance 216 415 13 Weight 54.3 kg 53.9 kg General appearance: PRESENT: no acute distress, hard of hearing, well-developed, well-nourished, other - frail, elderly Head exam: PRESENT: atraumatic, normocephalic Eye exam: PRESENT: conjunctiva pink, EOMI, PERRLA. ABSENT: scleral icterus Mouth exam: PRESENT: moist, tongue midline Respiratory exam: PRESENT: clear to auscultation jojo, symmetrical, unlabored, ot her - supplemental oxygen by NH. ABSENT: rales, rhonchi, wheezes Cardiovascular exam: PRESENT: RRR, +S1, +S2. ABSENT: diastolic murmur, rubs, systolic murmur Pulses: PRESENT: normal dorsalis pedis pul Vascular exam: PRESENT: normal capillary refill Extremities exam: PRESENT: full ROM, +1 edema - Soft, nonpitting, BLE. ABSENT: calf tenderness, clubbing, pedal edema Neurological exam: PRESENT: alert, awake, oriented to person, oriented to place, oriented to time, oriented to situation, CN II-XII grossly intact, other - intermittently, pleasantly, confused and forgetful. ABSENT: motor sensory deficit Psychiatric exam: PRESENT: anxious, appropriate affect, normal mood. ABSENT: homicidal ideation, suicidal ideation Skin exam: PRESENT: dry, intact, warm. ABSENT: cyanosis, rash Results Laboratory Results: 03/05/20 05:55 03/05/20 05:55 03/04/20 03/04/20 03/04/20 12:10 12:10 14:03 WBC 13.5 H RBC 3.72 Hgb 11.0 L D Hct 32.7 L MCV 88 MCH 29.5 MCHC 33.5 RDW 14.0 Plt Count 256 Seg Neutrophils % Not Reportable Sodium 131.8 L Potassium 5.2 H Chloride 102 Carbon Dioxide 17 L Anion Gap 13 BUN 66 H Creatinine 2.72 H Est GFR ( Amer) 20 L Glucose 275 H Calcium 8.9 Total Bilirubin 0.5 AST 68 H Alkaline Phosphatase 93 Total Protein 6.0 L Albumin 3.5 Urine Color YELLOW Urine Appearance CLEAR Urine pH 5.0 Ur Specific [place] 1.014 Urine Protein NEGATIVE Urine Glucose (UA) 50 H Urine Ketones NEGATIVE Urine Blood NEGATIVE Urine Nitrite NEGATIVE Ur Leukocyte Esterase NEGATIVE Urine WBC (Auto) 0 Urine RBC (Auto) 0 03/05/20 03/05/20 05:55 05:55 WBC 13.2 H RBC 3.95 Hgb 11.7 L Hct 34.9 L MCV 89 MCH 29.6 MCHC 33.4 RDW 14.2 H Plt Count 249 Seg Neutrophils % Not Reportable Sodium 135.8 L Potassium 4.8 Chloride 103 Carbon Dioxide 17 L Anion Gap 16 BUN 75 H Creatinine 2.52 H Est GFR ( Amer) 22 L Glucose 204 H Calcium 8.9 Total Bilirubin AST Alkaline Phosphatase Total Protein Albumin Urine Color Urine Appearance Urine pH Ur Specific [place] Urine Protein Urine Glucose (UA) Urine Ketones Urine Blood Urine Nitrite Ur Leukocyte Esterase Urine WBC (Auto) Urine RBC (Auto) 03/03/20 03/03/20 03/03/20 03:21 03:21 10:12 Creatine Kinase 103 144 H CK-MB (CK-2) Troponin I 0.074 NT-Pro-B Natriuret Pep 36884 H 03/03/20 03/03/20 03/04/20 10:12 14:36 00:42 Creatine Kinase CK-MB (CK-2) 10.00 H Troponin I 0.801 1.470 1.090 NT-Pro-B Natriuret Pep Impressions: Chest X-Ray 03/03/20 03:26 IMPRESSION: 1. Small right pleural effusion. 2. Interval development of mild diffuse interstitial prominence, suspicious for interstitial edema. More focal increased density in the right lower lung may represent atelectasis. Pneumonia not excluded. Assessment and Plan - Diagnosis (1) Non-ST elevation (NSTEMI) myocardial infarction Is this a current diagnosis for this admission?: Yes Plan: Hx of CAD EKG sinus rhythm, no ST elevation; repeat EKG is unchanged. Troponin 0.074-> 0.801-> 1.470-> 1.09 Admitted to the medical floor on continuous telemetry. Continue on aspirin, continue ARB and beta susy Continue Heparin gtt x 48 hours. To be discontinued tomorrow. Placed on a Nitro gtt briefly; have weaned off. Resume Imdur; will titrate up as tolerated Started Ranexa Patient with reported Statin allergy. Discussed with Dr. Welsh; patient is not candidate for intervention. Medical management only. Has signed off. (2) Heart failure with reduced ejection fraction Is this a current diagnosis for this admission?: Yes Plan: Acute combined systolic and diastolic CHF; unable to determine if patient had underlying chronic failure at this time. Echocardiogram reveals reduced ejection fraction of LVEF 30-35% with global hypokinesis and grade II diastolic disfunction. Metoprolol adjusted to carvedilol 6.25 mg twice daily as recommended by Dr. Welsh. Continues on isosorbide and losartan. Diuresing with furosemide 10 mg IV twice daily. Cardiac diet. Daily weights. Strict I&O's. (3) Hypertensive emergency Is this a current diagnosis for this admission?: Yes Plan: Blood pressures are improved. Came in with BP 180/127; decreased to 162/95 this morning. Cardiology is consulted; appreciate Dr. Welsh's assistance Continue lasix 10 mg IV twice daily Home meds resumed: ISDN, ARB Metorprolol adjusted to Carvedilol per Dr. Welsh's recommendations (4) CKD (chronic kidney disease) stage 4, GFR 15-29 ml/min Is this a current diagnosis for this admission?: Yes Plan: - Crea 2.29 which is around her baseline Optimize cardiac output. Avoid nephrotoxic medications as able. Renally dosed where appropriate. Follow-up chemistries. Daily weights, strict I&O's. (5) Hyperkalemia Is this a current diagnosis for this admission?: Yes Plan: Resolved. EKG is negative for peaked T waves. Previously received lactulose x1 and Kayexalate x1 Follow-up chemistries. (6) Hypercalcemia Is this a current diagnosis for this admission?: Yes Plan: Resolved. Monitor chemistries. (7) Lactic acid acidosis Is this a current diagnosis for this admission?: Yes Plan: Secondary to hypertensive emergency, non-STEMI Trend lactic acid. Remaining management as above. (8) Parkinson disease Is this a current diagnosis for this admission?: Yes Plan: - resumed carbidopa/levodopa (9) Type 2 diabetes mellitus Qualifiers: Diabetes mellitus longterm insulin use: without longterm use Chronic kidney disease stage: stage 3 (moderate) Is this a current diagnosis for this admission?: Yes Plan: Holding oral medications while admitted. We will check A1c with a.m. lab work. Accu-Cheks before meals and at bedtime with Humalog for sliding scale coverage. Hypoglycemia protocol in place. (10) Hyponatremia Is this a current diagnosis for this admission?: Yes Plan: Mild hyponatremia; trending up and not clinically significant currently Now receiving Lasix. Fluid restricted. (11) Generalized weakness Is this a current diagnosis for this admission?: Yes Plan: PT/OT consultations Fall precautions. D/C planning consulted. - Time Time Spent with patient: 25-34 minutes Medications reviewed and adjusted accordingly: Yes Anticipated Discharge Disposition: Home with Home Health - vs SNF for short term rehab r/t generalized weakness following acute illness. Anticipated Discharge Timeframe: within 72 hours
[2020-03-05] MEDS: ACETAMINOPHEN 325 MG TABLET PO PRN (21:44)
[2020-03-06] MEDS: CARBIDOPA/LEVODOPA 25-100 MG TABLET PO SCH ×3 (05:32→21:28)
[2020-03-06] MEDS: ISOSORBIDE MONONITRATE 30 MG TAB.ER.24H PO SCH ×2 (05:32→17:39)
[2020-03-06 08:49] LABS: ABSOLUTE LYMPHOCYTES (AUTO) 0.6 10^3/uL (0.5-4.7); ABSOLUTE MONOCYTES (AUTO) 0.8 10^3/uL (0.1-1.4); ABSOLUTE NEUT (AUTO) 9.5 10^3/uL (1.7-8.2); BASOPHILS % (AUTO) 0.1 % (0-2); HEMATOCRIT 33.7 % (36.0-47.0); HEMOGLOBIN 11.4 g/dL (12.0-15.5); LYMPHOCYTES % (AUTO) 5.7 % (13-45); MEAN CORPUSCULAR HEMOGLOBIN 29.8 pg (27.0-33.4); MEAN CORPUSCULAR HGB CONC 33.9 g/dL (32.0-36.0); MEAN CORPUSCULAR VOLUME 88 fl (80-97); MONOCYTES % (AUTO) 7.4 % (3-13); PLATELET COUNT 231 10^3/uL (150-450); RED BLOOD COUNT 3.83 10^6/uL (3.72-5.28); RED CELL DISTRIBUTION WIDTH 14.2 % (11.5-14.0); SEGMENTED NEUTROPHILS % (AUTO) 86.8 % (42-78); TOTAL CELLS COUNTED % (AUTO) 100 %
[2020-03-06 09:10] LABS: ANION GAP 12 (5-19); BLOOD UREA NITROGEN 78 mg/dL (7-20); CALCIUM 8.6 mg/dL (8.4-10.2); CARBON DIOXIDE 21 mmol/L (22-30); CHLORIDE 103 mmol/L (98-107); GLUCOSE 150 mg/dL (75-110); POTASSIUM 4.6 mmol/L (3.6-5.0)
[2020-03-06] MEDS: RANOLAZINE 500 MG TAB.SR.12H PO SCH ×2 (10:02→21:28)
[2020-03-06] MEDS: INSULIN LISPRO 100 UNIT/ML 3 ML VIAL SUBCUT SCH ×4 (10:02→21:27)
[2020-03-06] MEDS: LOSARTAN POTASSIUM 50 MG TABLET PO SCH (10:02)
[2020-03-06] MEDS: ASPIRIN 81 MG TABLET, CHEWABLE PO SCH (10:02)
[2020-03-06] MEDS: CARVEDILOL 6.25 MG TABLET PO SCH ×2 (10:02→21:28)
--- NOTE | 2020-03-06 13:40 | PDOC PROGRESS REPORT ---
Subjective Progress Note for:: 03/06/20 Subjective:: The patient is an 79 year old female with a past medical history of CAD, DM 2, hypertension, hyperlipidemia, CKD, GERD, and Parkinson's disease who was admitted 03/03/2020 with hypertensive emergency, CHF, and non-STEMI. Patient was seen on morning rounds. She is found resting in bed on supplemental oxygen via nasal cannula; she is not home O2 dependent. She reports continued fatigue. Reports her dyspnea has resolved. No further episodes of chest discomfort. She denies fever, chest pain, palpitations, abdominal pain, nausea, and vomiting. Does report soft stools. She has no questions or concerns at this time. No concerns per nursing. During previous conversation w/ patients daughter, I was informed that patient's has moderate dementia. Per nursing, patient's son-in-law informed them that her daughter is now admitted to [facility]. Reason For Visit: CHF EXACERBATION Physical Exam Vital Signs: Temp Pulse Resp BP Pulse Ox 97.7 F 88 20 127/83 H 100 03/06/20 11:00 03/06/20 11:00 03/06/20 11:00 03/06/20 11:00 03/06/20 11:00 Intake & Output 03/05/20 03/06/20 03/07/20 06:59 06:59 06:59 Intake Total 765 651 240 Output Total 350 Balance 415 651 240 Weight 53.9 kg 54.5 kg General appearance: PRESENT: no acute distress, hard of hearing, well-developed, well-nourished, other - frail, elderly Head exam: PRESENT: atraumatic, normocephalic Eye exam: PRESENT: conjunctiva pink, EOMI, PERRLA. ABSENT: scleral icterus Ear exam: PRESENT: normal external ear exam Mouth exam: PRESENT: moist, tongue midline Respiratory exam: PRESENT: clear to auscultation jojo, symmetrical, unlabored, other - Supplemental oxygen by nasal cannula. ABSENT: rales, rhonchi, wheezes Cardiovascular exam: PRESENT: RRR. ABSENT: diastolic murmur, rubs, systolic murmur Vascular exam: PRESENT: normal capillary refill Extremities exam: PRESENT: full ROM. ABSENT: calf tenderness, clubbing, pedal edema, +1 edema Neurological exam: PRESENT: alert, awake, oriented to person, oriented to place, oriented to time, oriented to situation, CN II-XII grossly intact, other - intermittently, pleasantly, confused and forgetful. ABSENT: motor sensory deficit Psychiatric exam: PRESENT: appropriate affect, normal mood. ABSENT: homicidal ideation, suicidal ideation Skin exam: PRESENT: dry, intact, warm. ABSENT: cyanosis, rash Results Laboratory Results: 03/06/20 07:09 03/06/20 07:09 03/06/20 03/06/20 07:09 07:09 WBC 11.0 H RBC 3.83 Hgb 11.4 L Hct 33.7 L MCV 88 MCH 29.8 MCHC 33.9 RDW 14.2 H Plt Count 231 Seg Neutrophils % 86.8 H Sodium 136.1 L Potassium 4.6 Chloride 103 Carbon Dioxide 21 L Anion Gap 12 BUN 78 H Creatinine 2.40 H Est GFR ( Amer) 24 L Glucose 150 H Calcium 8.6 03/03/20 03/03/20 03/03/20 03:21 03:21 10:12 Creatine Kinase 103 144 H CK-MB (CK-2) Troponin I 0.074 NT-Pro-B Natriuret Pep 91432 H 03/03/20 03/03/20 03/04/20 10:12 14:36 00:42 Creatine Kinase CK-MB (CK-2) 10.00 H Troponin I 0.801 1.470 1.090 NT-Pro-B Natriuret Pep Impressions: Chest X-Ray 03/03/20 03:26 IMPRESSION: 1. Small right pleural effusion. 2. Interval development of mild diffuse interstitial prominence, suspicious for interstitial edema. More focal increased density in the right lower lung may represent atelectasis. Pneumonia not excluded. Assessment and Plan - Diagnosis (1) Non-ST elevation (NSTEMI) myocardial infarction Is this a current diagnosis for this admission?: Yes Plan: Hx of CAD EKG sinus rhythm, no ST elevation; repeat EKG is unchanged. Troponin 0.074-> 0.801-> 1.470-> 1.09 Admitted to the medical floor on continuous telemetry. Continue on aspirin, continue ARB and beta susy Received Heparin gtt x 72 hours. Discontinue today. Placed on a Nitro gtt briefly; have weaned off. Resume Imdur Continue Ranexa Patient with reported Statin allergy. Discussed with Dr. Welsh; patient is not candidate for intervention. Medical management only. Has signed off. (2) Heart failure with reduced ejection fraction Is this a current diagnosis for this admission?: Yes Plan: Acute combined systolic and diastolic CHF; unable to determine if patient had underlying chronic failure at this time. Echocardiogram reveals reduced ejection fraction of LVEF 30-35% with global hypokinesis and grade II diastolic disfunction. Metoprolol adjusted to carvedilol 6.25 mg twice daily as recommended by Dr. Welsh. Continues on isosorbide and losartan. Slight bump in renal function; holding furosemide. Cardiac diet. Daily weights. Strict I&O's. (3) Hypertensive emergency Is this a current diagnosis for this admission?: Yes Plan: Blood pressures are improved. Came in with BP 180/127; decreased to 127/83 this morning. Cardiology is consulted; appreciate Dr. Welsh's assistance Home meds resumed: ISDN, ARB Metorprolol adjusted to Carvedilol per Dr. Welsh's recommendations. Recommends keeping SBP greater than 110. (4) CKD (chronic kidney disease) stage 4, GFR 15-29 ml/min Is this a current diagnosis for this admission?: Yes Plan: - Crea 2.29 which is around her baseline Optimize cardiac output. Avoid nephrotoxic medications as able. Renally dosed where appropriate. Follow-up chemistries. Daily weights, strict I&O's. (5) Hyperkalemia Is this a current diagnosis for this admission?: Yes Plan: Resolved. EKG is negative for peaked T waves. Previously received lactulose x1 and Kayexalate x1 Follow-up chemistries. (6) Hypercalcemia Is this a current diagnosis for this admission?: Yes Plan: Resolved. Monitor chemistries. (7) Lactic acid acidosis Is this a current diagnosis for this admission?: Yes Plan: Secondary to hypertensive emergency, non-STEMI Trend lactic acid. Remaining management as above. (8) Parkinson disease Is this a current diagnosis for this admission?: Yes Plan: - resumed carbidopa/levodopa (9) Type 2 diabetes mellitus Qualifiers: Diabetes mellitus mcfp insulin use: without mcfp use Chronic kidney disease stage: stage 3 (moderate) Is this a current diagnosis for this admission?: Yes Plan: Holding oral medications while admitted. A1c 5.7%. Accu-Cheks before meals and at bedtime with Humalog for sliding scale coverage. Hypoglycemia protocol in place. (10) Hyponatremia Is this a current diagnosis for this admission?: Yes Plan: Mild hyponatremia; trending up and not clinically significant currently Now receiving Lasix. Fluid restricted. (11) Generalized weakness Is this a current diagnosis for this admission?: Yes Plan: PT/OT consultations Fall precautions. D/C planning consulted. - Time Time Spent with patient: 25-34 minutes Medications reviewed and adjusted accordingly: Yes Anticipated Discharge Disposition: Care Home Facility Anticipated Discharge Timeframe: within 48 hours
[2020-03-06] MEDS: ACETAMINOPHEN 325 MG TABLET PO PRN (20:13)
[2020-03-07] MEDS: CARBIDOPA/LEVODOPA 25-100 MG TABLET PO SCH ×3 (05:12→21:29)
[2020-03-07] MEDS: ISOSORBIDE MONONITRATE 30 MG TAB.ER.24H PO SCH ×2 (05:12→17:20)
[2020-03-07 05:23] LABS: HEMOGLOBIN 11.6 g/dL (12.0-15.5); MEAN CORPUSCULAR HGB CONC 34.2 g/dL (32.0-36.0); MEAN CORPUSCULAR VOLUME 88 fl (80-97); PLATELET COUNT 220 10^3/uL (150-450); RED BLOOD COUNT 3.88 10^6/uL (3.72-5.28); RED CELL DISTRIBUTION WIDTH 14.2 % (11.5-14.0); WHITE BLOOD COUNT 8.2 10^3/uL (4.0-10.5)
[2020-03-07 05:55] LABS: ANION GAP 11 (5-19); BLOOD UREA NITROGEN 73 mg/dL (7-20); CALCIUM 8.7 mg/dL (8.4-10.2); CARBON DIOXIDE 23 mmol/L (22-30); CHLORIDE 102 mmol/L (98-107); GLUCOSE 136 mg/dL (75-110); POTASSIUM 4.8 mmol/L (3.6-5.0)
[2020-03-07] MEDS: INSULIN LISPRO 100 UNIT/ML 3 ML VIAL SUBCUT SCH ×4 (08:42→21:29)
[2020-03-07] MEDS: RANOLAZINE 500 MG TAB.SR.12H PO SCH ×2 (09:05→21:30)
[2020-03-07] MEDS: ASPIRIN 81 MG TABLET, CHEWABLE PO SCH (09:05)
[2020-03-07] MEDS: LOSARTAN POTASSIUM 50 MG TABLET PO SCH (09:05)
[2020-03-07] MEDS: CARVEDILOL 6.25 MG TABLET PO SCH ×2 (09:05→21:28)
--- NOTE | 2020-03-07 16:29 | PDOC PROGRESS REPORT ---
Subjective Progress Note for:: 03/07/20 Subjective:: The patient is an 79 year old female with a past medical history of CAD, DM 2, hypertension, hyperlipidemia, CKD, GERD, and Parkinson's disease who was admitted 03/03/2020 with hypertensive emergency, CHF, and non-STEMI. Patient was seen on morning rounds. She is found sitting up to the recliner, comfortably, on room air. Reports her dyspnea has resolved. No further episodes of chest discomfort. States she is feeling well and would like to be discharged home soon. She denies fever, chest pain, palpitations, abdominal pain, nausea, and vomiting. Does report soft stools. She has no questions or concerns at this time. No concerns per nursing. Spoke with patient's daughter, Emely, by phone today. Emely and her are driving down from [place]. We discussed the patient's diagnosis of non-STEMI, current status, treatment plan, and readiness for discharge. Emely is undecided about having her mother discharged home with home health services versus to SNF. They are leaning towards home with home health. She anticipates that she will be at the hospital to see her mother tomorrow midday. All questions answered. Reason For Visit: CHF EXACERBATION Physical Exam Vital Signs: Temp Pulse Resp BP Pulse Ox 97.4 F 83 16 121/72 98 03/07/20 15:50 03/07/20 15:50 03/07/20 15:50 03/07/20 15:50 03/07/20 15:50 Intake & Output 03/06/20 03/07/20 03/08/20 06:59 06:59 06:59 Intake Total 651 1157 Output Total 450 Balance 651 707 Weight 54.5 kg 54.7 kg General appearance: PRESENT: no acute distress, cooperative, hard of hearing, well-developed, well-nourished, other - Frail, elderly Head exam: PRESENT: atraumatic, normocephalic Eye exam: PRESENT: conjunctiva pink, EOMI, PERRLA. ABSENT: scleral icterus Mouth exam: PRESENT: moist, tongue midline Respiratory exam: PRESENT: clear to auscultation jojo, symmetrical, unlabored. ABSENT: rales, rhonchi, wheezes Cardiovascular exam: PRESENT: RRR, +S1, +S2. ABSENT: diastolic murmur, rubs, systolic murmur Pulses: PRESENT: normal dorsalis pedis pul Vascular exam: PRESENT: normal capillary refill Extremities exam: PRESENT: full ROM. ABSENT: calf tenderness, clubbing, pedal edema Neurological exam: PRESENT: alert, awake, oriented to person, oriented to place, oriented to situation, CN II-XII grossly intact, other - intermittently, pleasantly, confused and forgetful. ABSENT: motor sensory deficit Psychiatric exam: PRESENT: appropriate affect, normal mood. ABSENT: homicidal ideation, suicidal ideation Skin exam: PRESENT: dry, intact, warm. ABSENT: cyanosis, rash Results Laboratory Results: 03/07/20 04:39 03/07/20 04:39 03/07/20 03/07/20 04:39 04:39 WBC 8.2 RBC 3.88 Hgb 11.6 L Hct 34.0 L MCV 88 MCH 30.0 MCHC 34.2 RDW 14.2 H Plt Count 220 Sodium 136.0 L Potassium 4.8 Chloride 102 Carbon Dioxide 23 Anion Gap 11 BUN 73 H Creatinine 2.27 H Est GFR ( Amer) 25 L Glucose 136 H Calcium 8.7 03/03/20 03/03/20 03/03/20 03:21 03:21 10:12 Creatine Kinase 103 144 H CK-MB (CK-2) Troponin I 0.074 NT-Pro-B Natriuret Pep 10315 H 03/03/20 03/03/20 03/04/20 10:12 14:36 00:42 Creatine Kinase CK-MB (CK-2) 10.00 H Troponin I 0.801 1.470 1.090 NT-Pro-B Natriuret Pep Impressions: Chest X-Ray 03/03/20 03:26 IMPRESSION: 1. Small right pleural effusion. 2. Interval development of mild diffuse interstitial prominence, suspicious for interstitial edema. More focal increased density in the right lower lung may represent atelectasis. Pneumonia not excluded. Assessment and Plan - Diagnosis (1) Non-ST elevation (NSTEMI) myocardial infarction Is this a current diagnosis for this admission?: Yes Plan: Hx of CAD EKG sinus rhythm, no ST elevation; repeat EKG is unchanged. Troponin 0.074-> 0.801-> 1.470-> 1.09 Admitted to the medical floor on continuous telemetry. Continue on aspirin, continue ARB and beta susy Received Heparin gtt x 72 hours. Discontinue today. Placed on a Nitro gtt briefly; have weaned off. Continue Imdur Continue Ranexa Patient with reported Statin allergy. Discussed with Dr. Welsh; patient is not candidate for intervention. Medical management only. Has signed off. Outpatient follow-up with established vamp throater. (2) Heart failure with reduced ejection fraction Is this a current diagnosis for this admission?: Yes Plan: Acute combined systolic and diastolic CHF; unable to determine if patient had underlying chronic failure at this time. Echocardiogram reveals reduced ejection fraction of LVEF 30-35% with global hypokinesis and grade II diastolic disfunction. Metoprolol adjusted to carvedilol 6.25 mg twice daily as recommended by Dr. Welsh. Continues on isosorbide and losartan. Start p.o. furosemide Cardiac diet. Daily weights. Strict I&O's. (3) Hypertensive emergency Is this a current diagnosis for this admission?: Yes Plan: Blood pressures are improved. Came in with BP 180/127; decreased to 126/73 this morning. Cardiology is consulted; appreciate Dr. Welsh's assistance Home meds resumed: ISDN, ARB, furosemide Metorprolol adjusted to Carvedilol per Dr. Wlesh's recommendations. Recommends keeping SBP greater than 110. (4) CKD (chronic kidney disease) stage 4, GFR 15-29 ml/min Is this a current diagnosis for this admission?: Yes Plan: - Crea 2.29 which is around her baseline Optimize cardiac output. Avoid nephrotoxic medications as able. Renally dosed where appropriate. Follow-up chemistries. Daily weights, strict I&O's. (5) Hyperkalemia Is this a current diagnosis for this admission?: Yes Plan: Resolved. EKG is negative for peaked T waves. Previously received lactulose x1 and Kayexalate x1 Follow-up chemistries. (6) Hypercalcemia Is this a current diagnosis for this admission?: Yes Plan: Resolved. Monitor chemistries. (7) Lactic acid acidosis Is this a current diagnosis for this admission?: Yes Plan: Secondary to hypertensive emergency, non-STEMI Trend lactic acid. Remaining management as above. (8) Parkinson disease Is this a current diagnosis for this admission?: Yes Plan: - resumed carbidopa/levodopa (9) Type 2 diabetes mellitus Qualifiers: Diabetes mellitus chcf insulin use: without chcf use Chronic kidney disease stage: stage 3 (moderate) Is this a current diagnosis for this admission?: Yes Plan: Holding oral medications while admitted. A1c 5.7%. Accu-Cheks before meals and at bedtime with Humalog for sliding scale coverage. Hypoglycemia protocol in place. (10) Hyponatremia Is this a current diagnosis for this admission?: Yes Plan: Mild hyponatremia; trending up and not clinically significant currently Now receiving Lasix. Fluid restricted. (11) Generalized weakness Is this a current diagnosis for this admission?: Yes Plan: PT/OT consultations Fall precautions. D/C planning consulted. - Time Time Spent with patient: 25-34 minutes Medications reviewed and adjusted accordingly: Yes Anticipated Discharge Disposition: Home with Home Health Anticipated Discharge Timeframe: within 24 hours
[2020-03-08] MEDS: CARBIDOPA/LEVODOPA 25-100 MG TABLET PO SCH ×2 (06:34→13:58)
[2020-03-08] MEDS: ISOSORBIDE MONONITRATE 30 MG TAB.ER.24H PO SCH (06:34)
[2020-03-08] MEDS: INSULIN LISPRO 100 UNIT/ML 3 ML VIAL SUBCUT SCH ×2 (07:24→11:54)
[2020-03-08] MEDS ORDERED: FUROSEMIDE 20 MG TABLET PO SCH (10:00)
[2020-03-08] MEDS: RANOLAZINE 500 MG TAB.SR.12H PO SCH (10:13)
[2020-03-08] MEDS: LOSARTAN POTASSIUM 50 MG TABLET PO SCH (10:13)
[2020-03-08] MEDS: ASPIRIN 81 MG TABLET, CHEWABLE PO SCH (10:13)
[2020-03-08] MEDS: CARVEDILOL 6.25 MG TABLET PO SCH (10:13)
[2020-03-08 13:52] VITALS: BP 149/89
--- NOTE | 2020-03-09 06:39 | PDOC DISCHARGE SUMMARY ---
Impression - Admit/DC Date/PCP Admission Date/Primary Care Provider: 03/03/20 05:25 MIRIAN BARROSO MD Discharge Date: 03/08/20 - Discharge Diagnosis (1) Hypertensive emergency Is this a current diagnosis for this admission?: Yes (2) CHF (congestive heart failure) Is this a current diagnosis for this admission?: Yes (3) Non-ST elevation (NSTEMI) myocardial infarction Is this a current diagnosis for this admission?: Yes (4) Type 2 diabetes mellitus Is this a current diagnosis for this admission?: Yes (5) Parkinson disease Is this a current diagnosis for this admission?: Yes (6) CKD (chronic kidney disease) stage 4, GFR 15-29 ml/min Is this a current diagnosis for this admission?: Yes (7) Hypercalcemia Is this a current diagnosis for this admission?: Yes (8) Lactic acid acidosis Is this a current diagnosis for this admission?: Yes - Additional Information Resuscitation Status: Do Not Resuscitate Discharge Diet: Cardiac, Diabetic Discharge Activity: Activity As Tolerated, Balance Activity w/Rest, Weigh Daily Referrals: KELLY SHEFFIELD PA-C [ALLIED HEALTH PROFESSIONAL] - (OFFICE STATES THEY WILL HAVE TO CONFIRM WITH PROVIDER AND THEY WILL CALL PATIENT'S DAUGHTER WITH AN APPT. DATE AND TIME.) Prescriptions: Carvedilol [Coreg 6.25 mg Tablet] 6.25 mg PO Q12 30 Days #60 tablet Ranolazine [Ranexa 500 mg Tab.sr] 500 mg PO Q12 14 Days #30 tab.sr.12h Home Medications: Aspirin [Ecotrin 81 mg EC Tablet] 81 mg PO DAILY 03/03/20 Carbidopa/Levodopa [Sinemet 25-100 mg Tablet] 1 each PO TID 03/03/20 Famotidine [Pepcid] 20 mg PO BID 03/03/20 Furosemide [Lasix 40 mg Tablet] 40 mg PO QAM 03/03/20 Glimepiride 1 mg PO DAILY 03/03/20 Isosorbide Mononitrate [Imdur 30 mg Tablet.er] 30 mg PO BID 03/03/20 Telmisartan 40 mg PO DAILY 03/03/20 Carvedilol [Coreg 6.25 mg Tablet] 6.25 mg PO Q12 30 Days #60 tablet 03/08/20 Ranolazine [Ranexa 500 mg Tab.sr] 500 mg PO Q12 14 Days #30 tab.sr.12h 03/08/20 History of Present Illiness History of Present Illness: XANDER TORRES is a 79 year old female, PMH of CAD, T2DM, HTN, HLD, CKD, who was brought to the ED via EMS due to shortness of breath and chest heaviness. History obtained from her daughter Triny and from ED physician chart. Cording to the daughter she has been having on and off chest heaviness for the past month. She was being seen by Dr. Benoit who has been adjusting her medications for high blood pressure. According to the daughter Dr. Benoit was contemplating on doing a cardiac cath on her but held off due to her kidney functions. According to the patient her shortness of breath and chest heaviness seems to be worse at night. She denies any orthopnea, leg swelling, palpitations, fever, cough. Per EMS her blood pressure was 200/100 hence she was started on a nitroglycerin drip. She was also put on BiPAP per EMS which was continued in the ED. In the emergency room blood pressure was 181/127, rate of 86, O2 saturation 96%. CBC showed a count of 11. CMP showed potassium of 5.1, creatinine 2.38 which is around her baseline. Lactic acid 2.2. Troponin 0.074, BNP 13,600. She was given 1 mg of Bumex. Chest x-ray showed small right pleural effusion, interval development of mild diffuse interstitial prominence suspicious for interstitial edema. More focal increased density in the right lower lobe may represent atelectasis. Pneumonia is not excluded. She was given dexamethasone 10 mg IV, azithromycin for possible COVID-19. Dr. Welsh was consulted for cardiology. Hospital Course Hospital Course: The patient was admitted in [facility] and was started on IV lasix for diuresis. Cardiology was consulted who recommended to switch metoprolol to carvedilol. Echo done showed large pleural effusion, EF between 30-35%, mild global hypokinesis, grade 2 diastolic dysfunction. RVH. She was started on heparin drip due to recurrence of chest pain. Stopped after 1 day. She continued to improve the succeeding days with continued diuresis. She was seen by PT/OT who recommended continued home PT/OT. She was discharged on Feb with follow up with her primary care physician and traveling repair accountant. Physical Exam Vital Signs: Temp Pulse Resp BP Pulse Ox 98.4 F 87 21 H 149/89 H 96 03/08/20 13:50 03/08/20 14:00 03/08/20 13:50 03/08/20 13:50 03/08/20 13:50 Intake & Output 03/07/20 03/08/20 03/09/20 06:59 06:59 06:59 Intake Total 1157 500 Output Total 450 Balance 707 500 Weight 54.7 kg 54.7 kg General appearance: PRESENT: no acute distress, cooperative, hard of hearing, thin Head exam: PRESENT: atraumatic, normocephalic Eye exam: PRESENT: EOMI, PERRLA Mouth exam: PRESENT: moist Neck exam: PRESENT: carotid bruit Respiratory exam: PRESENT: clear to auscultation jojo, symmetrical, unlabored. ABSENT: rales Cardiovascular exam: PRESENT: RRR, +S1, +S2 Pulses: PRESENT: +2 pedal pulses bilateral GI/Abdominal exam: PRESENT: normal bowel sounds, soft. ABSENT: rebound, tenderness Extremities exam: PRESENT: full ROM Musculoskeletal exam: PRESENT: full ROM Neurological exam: PRESENT: alert, awake, oriented to person, oriented to place, oriented to time, oriented to situation Psychiatric exam: PRESENT: normal mood Skin exam: PRESENT: normal color Results Laboratory Results: WBC 8.2 10^3/uL (4.0-10.5) 03/07/20 04:39 RBC 3.88 10^6/uL (3.72-5.28) 03/07/20 04:39 Hgb 11.6 g/dL (12.0-15.5) L 03/07/20 04:39 Hct 34.0 % (36.0-47.0) L 03/07/20 04:39 MCV 88 fl (80-97) 03/07/20 04:39 MCH 30.0 pg (27.0-33.4) 03/07/20 04:39 MCHC 34.2 g/dL (32.0-36.0) 03/07/20 04:39 RDW 14.2 % (11.5-14.0) H 03/07/20 04:39 Plt Count 220 10^3/uL (150-450) 03/07/20 04:39 Lymph % (Auto) 5.7 % (13-45) L 03/06/20 07:09 Maverick % (Auto) 7.4 % (3-13) 03/06/20 07:09 Eos % (Auto) 0.0 % (0-6) 03/06/20 07:09 Baso % (Auto) 0.1 % (0-2) 03/06/20 07:09 Absolute Neuts (auto) 9.5 10^3/uL (1.7-8.2) H 03/06/20 07:09 Absolute Lymphs (auto) 0.6 10^3/uL (0.5-4.7) 03/06/20 07:09 Absolute Monos (auto) 0.8 10^3/uL (0.1-1.4) 03/06/20 07:09 Absolute Eos (auto) 0.0 10^3/uL (0.0-0.6) 03/06/20 07:09 Absolute Basos (auto) 0.0 10^3/uL (0.0-0.2) 03/06/20 07:09 Total Counted 100 03/05/20 05:55 Seg Neutrophils % 86.8 % (42-78) H 03/06/20 07:09 Seg Neuts % (Manual) 98 % (42-78) H 03/05/20 05:55 Lymphocytes % (Manual) 1 % (13-45) L 03/05/20 05:55 Monocytes % (Manual) 1 % (3-13) L 03/05/20 05:55 Eosinophils % (Manual) 0 % (0-6) 03/05/20 05:55 Basophils % (Manual) 0 % (0-2) 03/05/20 05:55 Abs Neuts (Manual) 12.9 10^3/uL (1.7-8.2) H 03/05/20 05:55 Abs Lymphs (Manual) 0.1 10^3/uL (0.5-4.7) L 03/05/20 05:55 Abs Monocytes (Manual) 0.1 10^3/uL (0.1-1.4) 03/05/20 05:55 Absolute Eos (Manual) 0.0 10^3/uL (0.0-0.6) 03/05/20 05:55 Abs Basophils (Manual) 0.0 10^3/uL (0.0-0.2) 03/05/20 05:55 Platelet Comment ADEQUATE 03/05/20 05:55 Anisocytosis SLIGHT 03/05/20 05:55 RBC Morph Comment NORMO-CYTIC/CHROMIC 03/04/20 12:10 PT 15.5 SEC (11.4-15.4) H 03/04/20 12:10 INR 1.21 03/04/20 12:10 APTT 58.3 SEC (23.5-35.8) H 03/06/20 07:09 Carbonic Acid Cancelled 03/03/20 04:35 HCO3/H2CO3 Ratio Cancelled 03/03/20 04:35 ABG pH Cancelled 03/03/20 04:35 ABG pCO2 Cancelled 03/03/20 04:35 ABG pO2 Cancelled 03/03/20 04:35 ABG HCO3 Cancelled 03/03/20 04:35 ABG Total CO2 Cancelled 03/03/20 04:35 ABG O2 Saturation Cancelled 03/03/20 04:35 ABG Base Excess Cancelled 03/03/20 04:35 VBG pH 7.31 (7.30-7.42) 03/03/20 03:41 VBG pCO2 42.2 mmHg (35-63) 03/03/20 03:41 VBG HCO3 20.6 mmol/L (20-32) 03/03/20 03:41 VBG Base Excess -5.5 mmol/L 03/03/20 03:41 FiO2 Cancelled 03/03/20 04:35 Sodium 136.0 mmol/L (137-145) L 03/07/20 04:39 Potassium 4.8 mmol/L (3.6-5.0) 03/07/20 04:39 Chloride 102 mmol/L (98-107) 03/07/20 04:39 Carbon Dioxide 23 mmol/L (22-30) 03/07/20 04:39 Anion Gap 11 (5-19) 03/07/20 04:39 BUN 73 mg/dL (7-20) H 03/07/20 04:39 Creatinine 2.27 mg/dL (0.52-1.25) H 03/07/20 04:39 Est GFR ( Amer) 25 (>60) L 03/07/20 04:39 Est GFR (MDRD) Non-Af 21 (>60) L 03/07/20 04:39 Glucose 136 mg/dL (75-110) H 03/07/20 04:39 POC Glucose 207 mg/dL (70-110) H 03/08/20 11:30 Hemoglobin A1c % 5.7 % (4.7-6.0) 03/05/20 05:55 Lactic Acid 2.7 mmol/L (0.7-2.1) H 03/03/20 10:12 Calcium 8.7 mg/dL (8.4-10.2) 03/07/20 04:39 Magnesium 2.1 mg/dL (1.6-2.3) 03/04/20 00:42 Total Bilirubin 0.5 mg/dL (0.2-1.3) 03/04/20 12:10 Direct Bilirubin 0.2 mg/dL (0.0-0.4) 03/04/20 12:10 Neonat Total Bilirubin Not Reportable 03/04/20 12:10 Neonat Direct Bilirubin Not Reportable 03/04/20 12:10 Neonat Indirect Bili Not Reportable 03/04/20 12:10 AST 68 U/L (14-36) H 03/04/20 12:10 ALT 11 U/L (<35) 03/04/20 12:10 Alkaline Phosphatase 93 U/L (38-126) 03/04/20 12:10 Creatine Kinase 144 U/L (30-135) H 03/03/20 10:12 CK-MB (CK-2) 10.00 ng/mL (<4.55) H 03/03/20 10:12 Troponin I 1.090 ng/mL 03/04/20 00:42 NT-Pro-B Natriuret Pep 46394 pg/mL (<450) H 03/03/20 03:21 Total Protein 6.0 g/dL (6.3-8.2) L 03/04/20 12:10 Albumin 3.5 g/dL (3.5-5.0) 03/04/20 12:10 Urine Color YELLOW 03/04/20 14:03 Urine Appearance CLEAR 03/04/20 14:03 Urine pH 5.0 (5.0-9.0) 03/04/20 14:03 Ur Specific [place] 1.014 03/04/20 14:03 Urine Protein NEGATIVE mg/dL (NEGATIVE) 03/04/20 14:03 Urine Glucose (UA) 50 mg/dL (NEGATIVE) H 03/04/20 14:03 Urine Ketones NEGATIVE mg/dL (NEGATIVE) 03/04/20 14:03 Urine Blood NEGATIVE (NEGATIVE) 03/04/20 14:03 Urine Nitrite NEGATIVE (NEGATIVE) 03/04/20 14:03 Urine Bilirubin NEGATIVE (NEGATIVE) 03/04/20 14:03 Urine Urobilinogen NEGATIVE mg/dL (<2.0) 03/04/20 14:03 Ur Leukocyte Esterase NEGATIVE (NEGATIVE) 03/04/20 14:03 Urine WBC (Auto) 0 /HPF 03/04/20 14:03 Urine RBC (Auto) 0 /HPF 03/04/20 14:03 U Hyaline Cast (Auto) 1 /LPF 03/03/20 18:15 Squamous Epi Cells Auto 1 /HPF 03/04/20 14:03 Urine Mucus (Auto) RARE /LPF 03/04/20 14:03 Urine Ascorbic Acid NEGATIVE (NEGATIVE) 03/04/20 14:03 COVID-19 Source See comment 03/07/20 15:30 COVID-19 (ARAMIS) Cancelled 03/03/20 05:06 03/03/20 03/03/20 03/03/20 03:21 10:12 14:36 CK-MB (CK-2) 10.00 H Troponin I 0.074 0.801 1.470 NT-Pro-B Natriuret Pep 18370 H 03/04/20 00:42 CK-MB (CK-2) Troponin I 1.090 NT-Pro-B Natriuret Pep Impressions: Chest X-Ray 03/03/20 03:26 IMPRESSION: 1. Small right pleural effusion. 2. Interval development of mild diffuse interstitial prominence, suspicious for interstitial edema. More focal increased density in the right lower lung may represent atelectasis. Pneumonia not excluded. Plan Health Concerns: - getting her strength back to take care of her - daughter and son in law to stay with her at home while she recovers. Plan of Treatment: - continue lasix oral tablet at home - metoprolol switched to carvedilol - follow up with traveling repair accountant Dr. Calderon Time Spent: Less than 30 Minutes Stroke Is this a Stroke Patient?: No Acute Heart Failure Is this a Heart Failure Patient?: Yes Documentation of LVEF assessment?: Yes LVEF: LVEF Less Than or Equal to 40% Anticoagulant Therapy: Yes Discharged on Evidence-Based Beta Blockers: Yes Discharged on ARNI?: No-Document Contraindications Reason(s) not discharged on ARNI: Impaired/worsening renal functions Discharged on ARB?: Yes For LVEF <35%, discharged on Aldosterone Antagonist?: N/A (LVEF > or = 35%) Follow-up Appointment scheduled within 7 days?: Yes
== END 2020-03-08 15:25 | disposition home health service (06) | DRG 280 ==
LOC: ER 03:16 → EH 05:25 → 4N 06:49 → 3W 03-04 00:58 → 4W 03-07 11:21
PROVIDERS: ADMIT Internal Medicine; ATTEND Internal Medicine
DX: I13.0 Hypertensive heart and chronic kidney disease with heart failure and stage 1 through stage 4 chronic kidney disease, or unspecified chronic kidney disease (principal); I21.4 Non-ST elevation (NSTEMI) myocardial infarction; I50.43 Acute on chronic combined systolic (congestive) and diastolic (congestive) heart failure; I16.1 Hypertensive emergency; E87.2 Acidosis; N18.4 Chronic kidney disease, stage 4 (severe); M19.90 Unspecified osteoarthritis, unspecified site; S00.83XA Contusion of other part of head, initial encounter; W19.XXXA Unspecified fall, initial encounter; I25.10 Atherosclerotic heart disease of native coronary artery without angina pectoris; E11.22 Type 2 diabetes mellitus with diabetic chronic kidney disease; E78.5 Hyperlipidemia, unspecified; K21.9 Gastro-esophageal reflux disease without esophagitis; G20 Parkinson's disease; E83.52 Hypercalcemia; E87.5 Hyperkalemia; Z88.8 Allergy status to other drugs, medicaments and biological substances; Y92.002 Bathroom of unspecified non-institutional (private) residence as the place of occurrence of the external cause; Z88.6 Allergy status to analgesic agent; Z20.828 Contact with and (suspected) exposure to other viral communicable diseases
CPT/HCPCS: 36415; 71045; 80048; 80053; 81001; 82550; 82553; 82803; 82962; 83036; 83605; 83735; 83880; 84484; 85025; 85027; 85610; 85730; 87040; 87635; 93005; 93010; 93306; 94640; 94667; 94799; 96365; 96375; 99285; C9803; J0456; J1100; J1644; J1815; J1940; J2270; J2920; J3490; J7613